=== PATIENT | male | born 1945 | race Caucasian/White ===

== ENCOUNTER → 2018-02-01 | Outpatient (CLI) | payer OTHER ==
[2018-02-01 09:03] LABS: BLOOD UREA NITROGEN 18 mg/dl (7-18); CARBON DIOXIDE 26 mmol/L (21-32); CREATININE 1.13 mg/dl (0.60-1.40); GLUCOSE 119 mg/dl (70-99); POTASSIUM 4.2 mmol/L (3.5-5.1); SODIUM 139 mmol/L (136-145)
[2018-02-01 10:01] LABS: HEMOGLOBIN A1C 6.9 % (4.5-5.6)
== END | disposition home or self-care (01) ==
LOC: C.LABFOXMH 08:35
PROVIDERS: ATTEND Internal Medicine
DX: E11.9 Type 2 diabetes mellitus without complications (principal); Z85.46 Personal history of malignant neoplasm of prostate; C61 Malignant neoplasm of prostate

== ENCOUNTER → 2018-05-01 | Outpatient (CLI) | payer OTHER ==
[~2018-05-01] MED LIST: OPTIRAY 320 IV PRN
--- NOTE | 2018-05-01 11:53 | DIAGNOSTIC IMAGING REPORT ---
CT UROGRAM CLINICAL HISTORY: Hematuria. COMPARISON STUDY: No priors. TECHNIQUE: Before and following the IV administration of 119 cc of Optiray 320, CT urogram of the abdomen and pelvis is performed from the lung bases to the proximal femora. Images are reviewed in the axial, sagittal, and coronal planes. IV contrast was administered without complication. A dose lowering technique was utilized adhering to the principles of ALARA. CT DOSE: 1406.97 mGy.cm FINDINGS: Lung bases: The heart is normal in size and without pericardial effusion. The lung bases are clear noting mild bibasilar scarring/atelectasis. There is a tiny hiatal hernia. Liver: The contrast-enhanced liver is normal in size, contour, and attenuation. There is no intrahepatic biliary ductal dilatation. The hepatic veins and portal veins are patent. Gallbladder: Unremarkable. Spleen: Normal in size and attenuation. Pancreas: Unremarkable. Adrenal glands: Unremarkable. Kidneys and ureters: The contrast enhanced kidneys are atrophic and without hydronephrosis. There are no renal calculi identified on the unenhanced images. The kidneys enhance and excrete symmetrically. There is no enhancing renal cortical mass lesion identified. Cortical scarring is seen in the interpolar right kidney. A peripherally calcified cyst or calyceal diverticulum seen on image #142 and measures up to 1.3 cm. There is a 1.7 cm parapelvic cyst seen on the left. A 0.8 cm cyst is seen in the right lower pole. There is no evidence of urothelial lesion within the renal pelvis bilaterally or along the course of either ureter. Abdominal vasculature: The abdominal aorta is normal in course and caliber noting moderate atherosclerotic calcification. Bowel: A large left inguinal hernia contains loops of nonobstructed small bowel and colon. No bowel obstruction is seen. There is moderate sigmoid diverticulosis without CT evidence of acute diverticulitis. Moderate fecal retention is noted in the right colon. The appendix is not clearly identified. Peritoneum: There is no intraperitoneal free air or abdominal ascites. Lymphadenopathy: None. Pelvic viscera: The prostate gland is diminutive and heterogeneous. There is median lobe hypertrophy. There is a large left internal hernia which contains loops of small bowel and colon. A small fat-containing inguinal hernia seen on the right. The bladder is distended. The bladder wall is thickened and trabeculated indicating chronic outlet obstruction. There is asymmetric bladder wall thickening versus layering intraluminal debris. This measures up to 11 mm in thickness, and is best seen on image #86 of the delayed bladder phase images. Skeletal structures: The skeletal structures are osteopenic. There is mild/moderate lumbosacral spondylosis. No lytic or blastic lesions are seen. IMPRESSION: 1. The kidneys are atrophic and without hydronephrosis. No renal calculi are identified. 2. There is no enhancing renal cortical mass, and no evidence of urothelial lesion involving the renal pelvis or ureter bilaterally. 3. There is median lobe hypertrophy of the prostate gland with evidence of chronic bladder obstruction. 4. There is asymmetric posterior bladder wall thickening versus layering intraluminal debris. Follow-up with cystoscopy is recommended for further assessment the bladder. 5. There is a large left inguinal hernia which contains nonobstructed loops of small bowel and colon. 6. Moderate sigmoid diverticulosis without CT evidence of acute diverticulitis. 7. Additional findings as above. Electronically signed by: Daneil Madison M.D. 05/01/2018 11:52 AM Dictated Date/Time: 05/01/2018 11:32 AM
== END | disposition home or self-care (01) ==
LOC: C.CTS 10:13
PROVIDERS: ATTEND Internal Medicine
DX: N26.1 Atrophy of kidney (terminal) (principal); N40.1 Benign prostatic hyperplasia with lower urinary tract symptoms

== ENCOUNTER → 2018-05-02 | Outpatient (CLI) | payer OTHER | END | disposition home or self-care (01) | LOC: C.PATHSPEC 17:38 | PROVIDERS: ATTEND Internal Medicine | DX: K40.90 Unilateral inguinal hernia, without obstruction or gangrene, not specified as recurrent (principal) ==

== ENCOUNTER → 2018-05-04 | Outpatient (CLI) | payer OTHER ==
[2018-05-04 15:52] LABS: BLOOD UREA NITROGEN 17 mg/dl (7-18); CALCIUM 8.9 mg/dl (8.5-10.1); CARBON DIOXIDE 28 mmol/L (21-32); GLUCOSE 277 mg/dl (70-99); POTASSIUM 4.6 mmol/L (3.5-5.1); SODIUM 136 mmol/L (136-145)
== END | disposition home or self-care (01) ==
LOC: C.LABFOXMH 15:22
PROVIDERS: ATTEND Nurse Practitioner Family
DX: Z51.81 Encounter for therapeutic drug level monitoring (principal); Z79.899 Other long term (current) drug therapy

== ENCOUNTER → 2018-05-07 | Outpatient (CLI) | payer OTHER ==
[2018-05-07 14:22] LABS: ALBUMIN 3.9 gm/dl (3.4-5.0); ALKALINE PHOSPHATASE 89 U/L (45-117); ALT/SGPT 33 U/L (12-78); AST/SGOT 20 U/L (15-37); BLOOD UREA NITROGEN 15 mg/dl (7-18); CALCIUM 10.1 mg/dl (8.5-10.1); CARBON DIOXIDE 24 mmol/L (21-32); CREATININE 1.34 mg/dl (0.60-1.40); GLUCOSE 266 mg/dl (70-99); POTASSIUM 4.4 mmol/L (3.5-5.1); SODIUM 135 mmol/L (136-145); TOTAL PROTEIN 7.9 gm/dl (6.4-8.2)
== END | disposition home or self-care (01) ==
LOC: C.LAB 11:18
PROVIDERS: ATTEND Urology
DX: K40.90 Unilateral inguinal hernia, without obstruction or gangrene, not specified as recurrent (principal)

== ENCOUNTER 2024-10-01 11:05 | Observation (INO) ==
--- NOTE | 2024-10-01 11:18 | ED Triage Note ---
Date of Service October 01, 2024 Provider in Triage Author: Radha Castanon History of Present Illness This patient was briefly evaluated while in triage. An abbreviated physical exam was performed. This patient is a 79-year-old Male who presents to the ED for evaluation sent from [facility] for urinary problems x 2 days urinary incontinence, left flank pain tried to insert catheter at facility x 2 - was able to void but had 1000 PVR reported elevated PSA and renal functions from recent labs Physical Exam GENERAL: NAD CARDIOVASCULAR: RRR RESPIRATORY: CTA ABDOMEN: BS x 4. Suprapubic TTP. Initial orders for labs and / or imaging were placed and patient was placed in the waiting area until a bed is available. Please see further documentation for the full ED course.
--- NOTE | 2024-10-01 11:28 | Emergency Department Note ---
Impression & Plan IZA (acute kidney injury), Difficulty voiding, Urinary retention, Prostate cancer, Urethral stricture ED Provider Note NAME: SO VALVERDE AGE: 79 SEX: M : 1945 ARRIVES VIA: Walk-In INFORMANT: Patient, ED PROVIDER(S): Mike Katz MD CHIEF COMPLAINT: Urinary retention, left lower quadrant pain MEDICAL DECISION MAKING: Patient presents with the above. The patient does not have any reproducible left lower quadrant pain on exam. Given the patient has been having issues with possible urinary retention over the week do believe that IV and blood work are warranted. Catheter was attempted to be placed at this time. Urinalysis sent. Initial difficulty with psych nurse attempted was able to place this. The patient did have significant output. The patient had resolution of any suprapubic fullness and has no abdominal pain. Given the patient's white blood cell count is normal do not believe requires CT of the abdomen pelvis at this time. Patient's blood work shows a normal white count hemoglobin 11.6 platelet count is unremarkable. Patient does have IZA with creatinine 2.3. Glucose of 367. Patient was ordered IV fluids. Likely obstructive uropathy as the patient has reported having urinary retention and went sounds to be overflow incontinence over the last week. I did inform the patient of the findings. I did speak with the on-call hospitalist service and the patient was admitted to the medicine service. I also did make the on-call urology service Stefani Hawkins aware. Discussion w/ other healthcare providers: LEE Ann PA-C and Dr. Jazzy Hawkins PA-C and Dr. Carnes urology Prior /Outside records reviewed: None Differential diagnosis: Urinary retention, UTI, bladder stone, IZA, ARF, pyelonephritis among others were considered Diagnostics, as interpreted by me: ECG: None Cardiac monitoring: An order was placed for continuous cardiac monitoring. The monitor shows a rate of 85 with sinus rhythm. Patient was placed on pulse oximetry Medical decision rules: None Imaging studies: None HPI: Patient presents as referral due to concern for urinary retention. Patient reports that he had some issues over the last week feeling though his bladder is full but cannot use the bathroom. The patient states that he will wake up in the middle the night around 2 in the morning and notices that he is wet to me indicate some overflow incontinence from his retention. The patient denies any chest pains or shortness of breath no nausea vomiting or diarrhea. The patient is an intermittent left-sided lower abdominal pain. Patient reports that he has had a prior history of prostate issues but has not had issues with urinary retention in the past that he can recall. Patient denies any flank pain or fevers. [facility] They did attempt to place catheter x 2 but were unsuccessful. The patient was able to urinate but still had thousand PVR. PAST MEDICAL HISTORY: See Below PAST SURGICAL HISTORY: See Below SOCIAL HISTORY: See Below HOME MEDICATIONS: See Below ALLERGIES: See Below VITALS: See Below PHYSICAL EXAMINATION: GENERAL: NAD, non-toxic. Wearing glasses. EYE EXAM: Normal conjunctiva. PERRL, no anisocoria and EOM's grossly intact w/o pain. OROPHARYNX: Moist mucus membranes, grossly normal dentition. NECK: Trachea midline, no stridor. Supple, no nuchal rigidity, no adenopathy, non-tender. No signs of meningismus. FROM of the neck with good chin to chest and neck extension. LUNGS: Clear to auscultation. Normal chest wall mechanics. HEART: NSR, no MRG. ABDOMEN: Abdomen soft, mild suprapubic fullness without tenderness to palpation in the lower abdomen, no masses, no rebound or guarding. BACK: No CVA TTP. SKIN: No rashes and no bruising. UPPER EXTREMITIES: Upper extremities are grossly normal. LOWER EXTREMITIES: Grossly normal, no edema. NEURO EXAM: A&O x3, cranial nerves II-XII grossly intact, normal speech, moves all 4 extremities. Past Med/Surg History Problem List (Updated 10/01/24 @ 18:27 by Mike Katz MD) Urinary retention (Acute) Difficulty voiding (Acute) IZA (acute kidney injury) (Acute) Diabetes mellitus, type 2 NIDDM Prostate cancer (Acute) Cancer PROSTATE - HAD RADIATION AND LUPRON IN 2005 IN [place], [place] Elevated PSA Urethral stricture (Acute) Hematuria Diabetes type 2, controlled Medical History White coat syndrome with diagnosis of hypertension BPH (benign prostatic hyperplasia) Tachycardia HAS HAD FOR YRS - STATES ALWAYS HIGH AND NO ISSUES Hyperlipidemia Surgical History No history of previous surgery Social History Smoking Status: Never smoker Do You Dip or Chew Tobacco: No; Hx Alcohol Use: Yes Hx Substance Use: No Preferred Language: Samoan Communication Ability: Effective Beliefs That Will Affect Care: None Current Living Situation: Alone Feels Safe at Home: Yes Assistive Devices: Glasses Allergies Allergies Allergy/AdvReac Type Severity Reaction Status Date / Time No Known Allergies Allergy Unverified 02/21/24 12:51 Home Meds Home Medications Medication Instructions Recorded Confirmed acetaminophen 500 mg tablet 500 mg PO Q6H PRN Pain (Scale 05/28/18 10/01/24 Score 1-3) aspirin 325 mg tablet 325 mg PO DAILY PRN Fever 05/28/18 10/01/24 glipizide 10 mg tablet 10 mg PO TIDWMEAL 05/28/18 10/01/24 metformin 1,000 mg tablet 1,000 mg PO BIDM 05/28/18 10/01/24 multivitamin 1 tab PO QAM 05/28/18 10/01/24 simvastatin 40 mg tablet 40 mg PO PM 05/28/18 10/01/24 sitagliptin phosphate 100 mg 100 mg PO QPM 05/28/18 10/01/24 tablet (Januvia) Results & Data (ED) Vital Signs Vital Signs - 24 hr 10/01/24 11:16 10/01/24 12:16 10/01/24 12:16 Temperature 36.4 C L Temperature Source Oral Pulse Rate 122 H 96 H Pulse Rate [Apical] 102 H Pulse Rhythm Regular Pulse Rhythm [Apical] Regular Respiratory Rate 18 20 19 Respiratory Effort / Characteristics Non-Labored Spontaneous Respiratory Depth Normal Respiratory Pattern Regular Blood Pressure 165/106 H Blood Pressure [Right Arm] 157/114 H Blood Pressure Mean 125 Blood Pressure Mean [Right Arm] 128 Pulse Oximetry 97 98 97 Oxygen Delivery Method Room Air Room Air Room Air Sepsis Recent Fever Within 48 Hours No Sepsis New/Unexplained Change in Mental Status No Sepsis Action Taken by Nursing No Action Required 10/01/24 12:23 Temperature Temperature Source Pulse Rate 103 H Pulse Rate [Apical] Pulse Rhythm Pulse Rhythm [Apical] Respiratory Rate Respiratory Effort / Characteristics Respiratory Depth Respiratory Pattern Blood Pressure Blood Pressure [Right Arm] Blood Pressure Mean Blood Pressure Mean [Right Arm] Pulse Oximetry Oxygen Delivery Method Sepsis Recent Fever Within 48 Hours Sepsis New/Unexplained Change in Mental Status Sepsis Action Taken by Nursing Laboratory Data 10/01/24 11:39 10/01/24 11:39 Lab Results 10/01/24 Range/Units 11:39 WBC 9.48 (4.8-10.8) K/ul RBC 3.77 L (4.70-6.10) M/uL Hgb 11.6 L (14.0-18.0) g/dl Hct 35.3 L (42.0-52.0) % MCV 93.6 (80.0-100.0) fL MCH 30.8 (25.0-34.0) pg MCHC 32.9 (32.0-36.0) g/dL RDW Std Deviation 42.7 (36.4-46.3) fL RDW Coeff of Thalia 12.4 (11.5-14.5) % Plt Count 228 (130-400) K/uL MPV 9.3 L (9.4-12.4) fL Immature Gran % (Auto) 0.3 % Neut % (Auto) 79.3 % Lymph % (Auto) 12.2 % [place]on % (Auto) 6.9 % Eos % (Auto) 0.9 % Baso % (Auto) 0.4 % Neut # (Auto) 7.51 H (1.40-6.50) K/uL Lymph # (Auto) 1.16 L (1.20-3.40) K/uL [place] # (Auto) 0.65 H (0.11-0.59) K/uL Eos # (Auto) 0.09 (0.00-0.50) K/uL Baso # (Auto) 0.04 (0.00-0.20) K/uL Immature Gran # (Auto) 0.03 (0.01-0.20) K/uL Sodium 138 (136-145) mmol/L Potassium 4.3 (3.5-5.1) mmol/L Chloride 103 (98-107) mmol/L Carbon Dioxide 23 (21-32) mmol/L Anion Gap 12 H (3-11) BUN 26 H (6-23) mg/dl Creatinine 2.33 H (0.6-1.4) mg/dl Est Cr Clr Drug Dosing 24.5 ml/min eGFR 27.57 BUN/Creatinine Ratio 11.2 (10-20) Glucose 367 H* (70-99(Fasting)) mg/dl Calcium 9.8 (8.6-10.3) mg/dl Total Bilirubin 0.5 (0.2-1.0) mg/dl AST 17 (13-39) U/L ALT 14 (7-52) U/L Alkaline Phosphatase 79 (34-104) U/L Total Protein 7.8 (6.0-8.3) gm/dl Albumin 4.1 (3.4-5.0) gm/dl Globulin 3.7 (2.5-4.0) gm/dl Albumin/Globulin Ratio 1.1 (0.9-2) Administered Medications Discontinued Medications Sodium Chloride (Nss) 500 mls @ 999 mls/hr IV .Q31M ONE Stop: 10/01/24 13:09 Last Infusion: 10/01/24 13:35 Dose: Infused Documented By: Admin: 10/01/24 12:57 Dose: 999 mls/hr Documented By: EDDIE Insulin Glargine (Lantus Per Unit Charge) 5 units SQ NOW STA Stop: 10/01/24 15:29 Last Admin: 10/01/24 15:45 Dose: 5 units Documented By: SAMARA Co-signed By: PILY Lidocaine HCl (Lidocaine 2% Jelly 5 Ml Tube) Confirm Administered Dose 5 ml EXT .STK-MED ONE Stop: 10/01/24 11:59 Last Admin: 10/01/24 12:10 Dose: 5 ml Documented By: TOY Discharge Plan Visit Data Chief Complaint: Unable to Void Stated Complaint: UNABLE TO FULLY VOID ED Provider: Mike Katz Discharge Problem: IZA (acute kidney injury), Difficulty voiding, Urinary retention, Prostate cancer, Urethral stricture Patient Disposition: Admitted As Inpatient Discharge Instructions Interventions: ED Discharge Assessment Last Done: 10/01/24 14:43 Discharge Problem: Urethral stricture Qualifiers: Urethral stricture type: unspecified stricture type Urethral stricture sex- location: male urethra-unspecified Qualified Code(s): N35.919 - Unspecified urethral stricture, male, unspecified site
[2024-10-01] MEDS: LIDOCAINE 2% JELLY 5 ML TUBE EXT ONE (12:10)
[2024-10-01 12:11] LABS: Basophils # (auto) 0.04 K/uL (0.00-0.20); Basophils % (auto) 0.4 %; Eosinophils # (auto) 0.09 K/uL (0.00-0.50); Eosinophils % (auto) 0.9 %; Hematocrit (blood only) 35.3 % (42.0-52.0); Hemoglobin 11.6 g/dl (14.0-18.0); Immature Granulocytes # (auto) 0.03 K/uL (0.01-0.20); Immature Granulocytes % (auto) 0.3 %; Lymphocytes # (auto) 1.16 K/uL (1.20-3.40); Lymphocytes % (auto) 12.2 %; Mean Corpuscular Hemoglobin 30.8 pg (25.0-34.0); Mean Corpuscular Hgb Conc 32.9 g/dL (32.0-36.0); Mean Corpuscular Volume 93.6 fL (80.0-100.0); Mean Platelet Volume 9.3 fL (9.4-12.4); Monocytes # (auto) 0.65 K/uL (0.11-0.59); Monocytes % (auto) 6.9 %; Neutrophils # (auto) 7.51 K/uL (1.40-6.50); Neutrophils % (auto) 79.3 %; Platelet Count 228 K/uL (130-400); RDW Coefficient of Variation 12.4 % (11.5-14.5); RDW Standard Deviation 42.7 fL (36.4-46.3); Red Blood Count 3.77 M/uL (4.70-6.10); White Blood Count 9.48 K/ul (4.8-10.8)
[2024-10-01 12:33] LABS: Albumin Globulin Ratio 1.1 (0.9-2); Albumin Level 4.1 gm/dl (3.4-5.0); BUN Creatinine Ratio 11.2 (10-20); Bilirubin,Total 0.5 mg/dl (0.2-1.0); Calcium 9.8 mg/dl (8.6-10.3); Creatinine Clr Calc Pharmacy 24.5 ml/min; Globulin 3.7 gm/dl (2.5-4.0); Potassium 4.3 mmol/L (3.5-5.1); Total Protein 7.8 gm/dl (6.0-8.3)
[2024-10-01] MEDS: SODIUM CHLORIDE 0.9% 500 ML IV ONE (12:57)
--- NOTE | 2024-10-01 13:24 | History & Physical Report ---
Date of Service October 01, 2024 Assessment & Plan (1) Difficulty voiding: Plan: Patient presented on 10/01 for difficulty voiding Clinically, patient denies burning with urination, dysuria, or hematuria His main concerns on arrival are the difficulty voiding and ongoing nocturia x 1 month Amador placed in the ED; drained 1L Suspect secondary to urethral stricture in the setting of prostate cancer UA ordered, pending Daily Amador catheter care (2) IZA (acute kidney injury): Plan: BUN 26, creatinine 2.33 (baseline around 1.2) Thought to be secondary to obstruction Avoid nephrotoxic agents for possible Trend BMP (3) Diabetes mellitus, type 2: Plan: Last A1c at 8.4% on 09/03/2024 Hold glipizide, metformin, sitagliptin Lantus 5 u BID while inpatient SSI; with target BSG range 110-140mg/dL, CF 25, carb ratio 10 T2DM diet BSG ACHS Adjust regimen as needed (4) Prostate cancer: (5) Urethral stricture: Plan [facility]: [facility] T2DM diet VTE PPx: Heparin 5000u SQ q12h History of Present Illness Chief Complaint: Difficulty voiding, nocturia Primary Care Provider: Modesto Benites is a pleasant 79-year-old male with PMH of T2DM, urethral stricture, hematuria, and prostate cancer. He presented on 10/01 for difficulty voiding. Patient reports he was able to give a small sample of urine when he went to his PCP today, but when they tried to insert a Amador x 2, they were unable to and he was instructed to go to the ED. Patient reports that his main concern is that he wakes up frequently at night to urinate. He has also had several episodes of nocturia and urinary incontinence over the past month. While patient reports he has not had complete inability to urinate, he has had significant difficulty voiding as well as urinary incontinence (not new for him), and he wears briefs at baseline. He ambulates with a cane at baseline. He denies any recent falls, but does report he stumbled into the appliance the other day when he reached too far; no head strike. No prior history of kidney stones. Patient did not take his regular morning medicine today; he manages her own medicine at [facility]. No recent change in medications. He is a former smoker but quit in 1964. No recent alcohol use. Patient is mildly hypertensive at 157/114, as well as tachycardic around 100 bpm, at time of admission. ED course: Amador placed NSS 500 mL IV ROS: Patient endorses difficulty with urination, urinary incontinence, and nocturia. Patient denies fever, chills, night-sweats, dizziness, lightheadedness, chest pain, SOB, cough, abdominal pain, N/V/D, change in bowel habits, lower back pain, saddle anesthesia, burning with urination, or hematuria. Allergies Allergy/AdvReac Type Severity Reaction Status Date / Time No Known Allergies Allergy Unverified 02/21/24 12:51 Home Medications Medication Instructions Recorded Confirmed Type acetaminophen 500 mg tablet 500 mg PO Q6H PRN Pain (Scale 05/28/18 10/01/24 History Score 1-3) aspirin 325 mg tablet 325 mg PO DAILY PRN Fever 05/28/18 10/01/24 History glipizide 10 mg tablet 10 mg PO TIDWMEAL 05/28/18 10/01/24 History metformin 1,000 mg tablet 1,000 mg PO BIDM 05/28/18 10/01/24 History multivitamin 1 tab PO QAM 05/28/18 10/01/24 History simvastatin 40 mg tablet 40 mg PO PM 05/28/18 10/01/24 History sitagliptin phosphate 100 mg 100 mg PO QPM 05/28/18 10/01/24 History tablet (Januvia) Past Med/Surg History Problem List (Updated 10/01/24 @ 16:39 by MANOLO Strong) Urinary retention Difficulty voiding IZA (acute kidney injury) Diabetes mellitus, type 2 NIDDM Prostate cancer Cancer PROSTATE - HAD RADIATION AND LUPRON IN 2005 IN [place], [place] Elevated PSA Urethral stricture Hematuria Diabetes type 2, controlled Medical History White coat syndrome with diagnosis of hypertension BPH (benign prostatic hyperplasia) Tachycardia HAS HAD FOR YRS - STATES ALWAYS HIGH AND NO ISSUES Hyperlipidemia Surgical History No history of previous surgery Social History Smoking Status: Never smoker Do You Dip or Chew Tobacco: No; Hx Alcohol Use: Yes Hx Substance Use: No Preferred Language: Citizen Of [place] Communication Ability: Effective Beliefs That Will Affect Care: None Current Living Situation: Alone Feels Safe at Home: Yes Assistive Devices: Glasses Review of Systems Review of Systems: See HPI above Physical Exam Physical Exam: General: no acute distress; pleasant affect; non-toxic appearing; cooperative; SpO2 97% on RA HEENT: normocephalic, atraumatic; no scleral icterus; PERRLA; vision and hearing grossly intact Neck: supple; trachea midline Skin: Hematoma noted on the right antecubital fossa; warm, dry without signs of tenting; no cyanosis; no rashes, bruising, lesions, or erythema noted CV: chest wall NTP; RR, mildly tachycardic around 100 bpm; S1/S2 normal; no murmurs/rubs/gallops; pulses intact and symmetric at radial, DP, and PT Lungs: no acute respiratory distress; symmetrical chest wall expansion; clear breath sounds across all lung stevenson w/o adventitious sounds; no wheezing ABD: Soft, NTP; BS present; no rebound/guarding; no distention : Mild erythematous rash noted on the right inguinal crease; Amador draining dark yellow urine; negative suprapubic tenderness; no gross hematuria MSK: no tics or fasciculations; no edema noted in the LEs b/l, nonerythematous; patient demonstrates ability to wiggle toes bilaterally Neuro: A&Ox3; normal mood and affect; fluent speech; no focal deficits; patient reports that sensation is intact and symmetric in lower extremities bilaterally Results & Data Results & Data Vital Signs (Past 12 Hours) Vital Signs Temp Pulse Pulse Resp BP BP Pulse Ox 10/01/24 12:23 103 H 10/01/24 12:16 96 H 19 97 10/01/24 12:16 102 H 20 157/114 H 98 10/01/24 11:16 36.4 C L 122 H 18 165/106 H 97 O2 Del Method 10/01/24 12:23 10/01/24 12:16 Room Air 10/01/24 12:16 Room Air 10/01/24 11:16 Room Air Laboratory Results Abnormal lab results 10/01/24 Range/Units 11:39 RBC 3.77 L (4.70-6.10) M/uL Hgb 11.6 L (14.0-18.0) g/dl Hct 35.3 L (42.0-52.0) % MPV 9.3 L (9.4-12.4) fL Neut # (Auto) 7.51 H (1.40-6.50) K/uL Lymph # (Auto) 1.16 L (1.20-3.40) K/uL [place] # (Auto) 0.65 H (0.11-0.59) K/uL Anion Gap 12 H (3-11) BUN 26 H (6-23) mg/dl Creatinine 2.33 H (0.6-1.4) mg/dl Glucose 367 H* (70-99(Fasting)) mg/dl Code Status & VTE Plan Code Status DNR/DNI VTE Prophylaxis Plan VTE Prophylaxis will be ordered: Yes Supervising Physician Co-Signing Physician Notes I personally examined the patient and verified all dodge points of history and exam, discussed case, and agree with decision making with Andrea AMEZQUITA Feeling much better since Amador placed. Expresses good understanding of situation. Has no current complaints. Urology input appreciated. Vitals note d, in general he is awake and alert pleasant no distress. HEENT normocephalic atraumatic mucous membranes moist. Breathing unlabored no accessory muscle use good effort. Skin without rashes pallor or icterus. Neuro without focal deficits. Labs reviewed. Obstructive uropathy with concomitant acute renal failurealmost certainly prostatic obstructionnow alleviated with Amador drainage. Anticipate ARF improvingwatch overnight to ensure that he trends in the right direction, and that he is able to tolerate the Amador okay. Anticipate home tomorrow with amador in place as long as he has no setbacks, will have close and ongoing urology follow-up. PG Care Time/CCT Total # of Minutes Spent Total Time Spent with Patient: Total time spent is greater than 50% in coordination of care (as documented) at patient's floor/unit and/or counseling patient: Coding [place] [address] INT INP/OBS CARE 3/75MIN Patient Type Established Medical Decision Making Moderate Complexity Diagnoses Difficulty voiding R39.198 IZA (acute kidney injury) N17.9 Diabetes mellitus, type 2 E11.9 Prostate cancer C61 Urethral stricture N35.9
[2024-10-01] MEDS ORDERED: ACETAMINOPHEN 325 MG TAB PO PRN (14:42)
[2024-10-01] MEDS ORDERED: CARBOHYDRATES FOR HYPOGLYCEMIA PO PRN (14:42)
[2024-10-01] MEDS ORDERED: GLUCAGON FOR INJ 1 MG VIAL SQ PRN (14:42)
[2024-10-01] MEDS ORDERED: GLUCOSE 40% GEL 15 GM TUBE PO PRN (14:42)
[2024-10-01] MEDS ORDERED: DEXTROSE 50% 50 ML SYRINGE IV PRN (14:42)
[2024-10-01] MEDS ORDERED: GLUCOSE 10 TAB/TUBE PO PRN (14:42)
[2024-10-01] MEDS: LANTUS PER UNIT CHARGE SQ STA (15:45)
--- NOTE | 2024-10-01 16:43 | Urology Consultation ---
<Statement entered by Adolph Carnes MD - 10/01/24 18:48> I have discussed Mr. Abad's case with MANOLO Lipscomb and agree with the above documentation. Urinary retention now managed with indwelling Lance catheter. Would maintain this until we can arrange outpatient follow-up, likely for cystoscopy to further evaluate his urethra with history of stricture disea se. -Adolph Carnes MD. Date of Consultation October 01, 2024 Assessment & Plan (1) Urinary retention: (2) Difficulty voiding: (3) Prostate cancer: (4) Urethral stricture: 79 yo/M with past medical history of prostate cancer and urethral stricture who presented to the emergency department for evaluation of difficulty voiding and elevated bladder scan at [facility]. Lance catheter was placed in the emergency department and he was admitted for urinary retention and IZA. Patient afebrile Labs reviewedcreatinine 2.33 (baseline ~1.18), no leukocytosis, hemoglobin 11.6 Lance catheter was placed in the emergency department with greater than 1 L of output Monitor for postobstructive diuresis, trend labs Recommend UA and culture Maintain Lance catheter upon discharge Patient will likely need cystoscopy as an outpatient Will arrange outpatient follow-up with our service for further management Continue with supportive care and medical management per hospital medicine service will sign off, please contact our service with any additional questions or concerns History of Present Illness Reason for Consultation: Urinary retention Attending Physician: Mariusz Purcell DO History of Present Illness This is an 79-year-old male with past medical history of prostate cancer and urethral stricture who presented to the emergency department on 10/01 for evaluation of difficulty voiding. He resides at [facility] and was evaluated for difficulty voiding. His facility was unable to place catheter, bladder scan was approximately 1000 mL. He was referred to the emergency department for further evaluation. On arrival, he was afebrile, tachycardic and hypertensive. Lab work showed creatinine 2.33 (baseline ~1.18), WBC 9.48, hemoglobin 11.6. Lance catheter was placed in the emergency department. He was admitted to the hospital medicine service for IZA. Patient seen and examined in the emergency department. He reports increased difficulty voiding and nocturia for the past month or so. He reports nocturia every 2 hours and incontinence at night. He had low appetite and lower abdominal discomfort for the past 2 days. Denies bothersome urinary symptoms during the day, though notes weak stream at baseline. Occasional incontinence during the day. Denies dysuria or hematuria. Feels better since catheter was placed. Patient follows with Dr. Myrick for history of prostate cancer and has a history of urethral stricture. Allergies Allergy/AdvReac Type Severity Reaction Status Date / Time No Known Allergies Allergy Unverified 02/21/24 12:51 Home Medications Medication Instructions Recorded Confirmed Type acetaminophen 500 mg tablet 500 mg PO Q6H PRN Pain (Scale 05/28/18 10/01/24 History Score 1-3) aspirin 325 mg tablet 325 mg PO DAILY PRN Fever 05/28/18 10/01/24 History glipizide 10 mg tablet 10 mg PO TIDWMEAL 05/28/18 10/01/24 History metformin 1,000 mg tablet 1,000 mg PO BIDM 05/28/18 10/01/24 History multivitamin 1 tab PO QAM 05/28/18 10/01/24 History simvastatin 40 mg tablet 40 mg PO PM 05/28/18 10/01/24 History sitagliptin phosphate 100 mg 100 mg PO QPM 05/28/18 10/01/24 History tablet (Januvia) Patient History Medical History White coat syndrome with diagnosis of hypertension BPH (benign prostatic hyperplasia) Tachycardia HAS HAD FOR YRS - STATES ALWAYS HIGH AND NO ISSUES Hyperlipidemia Surgical History No history of previous surgery Social History Smoking Status: Never smoker Do You Dip or Chew Tobacco: No; Hx Alcohol Use: Yes Hx Substance Use: No Preferred Language: [place] Communication Ability: Effective Beliefs That Will Affect Care: None Current Living Situation: Alone Feels Safe at Home: Yes Assistive Devices: Glasses Review of Systems Review of Systems: All systems reviewed & are unremarkable except as noted in HPI & below Physical Exam Constitutional: well developed and well nourished; no acute distress Respiratory: normal respiratory effort; no respiratory distress and no labored breathing Gastrointestinal (Abdomen): Inspection/Auscultation: abdomen normal to inspection Musculoskeletal: Head/Neck/Chest: normocephalic Neurologic: moves all extremities and awake Psychiatric: Orientation: alert and oriented x 3 Genitourinary: Lance patent and draining clear yellow urine Results & Data Vital Signs (Past 12 Hours) Vital Signs Temp Pulse Pulse Resp BP BP Pulse Ox 10/01/24 15:26 95 H 18 159/99 H 95 10/01/24 12:23 103 H 10/01/24 12:16 96 H 19 97 10/01/24 12:16 102 H 20 157/114 H 98 10/01/24 11:16 36.4 C L 122 H 18 165/106 H 97 O2 Del Method 10/01/24 15:26 Room Air 10/01/24 12:23 10/01/24 12:16 Room Air 10/01/24 12:16 Room Air 10/01/24 11:16 Room Air PG Care Time/CCT Total # of Minutes Spent Total Time Spent with Patient: Total time spent is greater than 50% in coordination of care (as documented) at patient's floor/unit and/or counseling patient: Coding Level of Care Code 73058 INT INP/OBS CARE 2/55MIN Diagnoses Urinary retention R33.9 Difficulty voiding R39.198 Prostate cancer C61 Urethral stricture N35.9
[2024-10-01] MEDS: INSULIN ASPART PER UNIT CHARGE SC SCH (18:23)
[2024-10-01] MEDS: SIMVASTATIN 40 MG TAB PO SCH (20:07)
[2024-10-01] MEDS: HEPARIN SOD 5,000 UNIT/0.5 ML VIAL SQ SCH (21:45)
[2024-10-02 08:06] LABS: Basophils # (auto) 0.05 K/uL (0.00-0.20); Basophils % (auto) 0.5 %; Hematocrit (blood only) 35.6 % (42.0-52.0); Immature Granulocytes # (auto) 0.04 K/uL (0.01-0.20); Immature Granulocytes % (auto) 0.4 %; Lymphocytes # (auto) 1.56 K/uL (1.20-3.40); Lymphocytes % (auto) 15.1 %; Mean Corpuscular Hemoglobin 31.6 pg (25.0-34.0); Mean Corpuscular Hgb Conc 33.7 g/dL (32.0-36.0); Mean Corpuscular Volume 93.7 fL (80.0-100.0); Mean Platelet Volume 9.5 fL (9.4-12.4); Monocytes # (auto) 0.82 K/uL (0.11-0.59); Monocytes % (auto) 7.9 %; Neutrophils # (auto) 7.79 K/uL (1.40-6.50); Neutrophils % (auto) 75.1 %; Platelet Count 238 K/uL (130-400); RDW Coefficient of Variation 12.6 % (11.5-14.5); RDW Standard Deviation 43.3 fL (36.4-46.3); White Blood Count 10.36 K/ul (4.8-10.8)
[2024-10-02 08:11] LABS: BUN Creatinine Ratio 13.1 (10-20); Calcium 9.2 mg/dl (8.6-10.3); Creatinine Clr Calc Pharmacy 23.4 ml/min; Potassium 4.3 mmol/L (3.5-5.1)
[2024-10-02] MEDS: LANTUS PER UNIT CHARGE SQ SCH ×2 (08:36→21:02)
--- NOTE | 2024-10-02 08:43 | Hospitalist Progress Note ---
Date of Service October 02, 2024 Assessment & Plan (1) Urinary retention: (2) Urethral stricture: (3) IZA (acute kidney injury): (4) Hematuria: (5) Diabetes mellitus, type 2: (6) Prostate cancer: Plan Kamari 79-year-old male with PMH of T2DM, urethral stricture, hematuria, and prostate cancer here due to urinary retention IZA (acute kidney injury): Cr: 2.44 - BUN 35, not improving yet since Lance catheter placement 2/ secondary to obstruction, Renal ultrasound: Mild to moderate bilateral hydronephrosis. Lance catheter now in place and the hydronephrosis may take some time to resolve FeNA: 2.2% Intrinsic? Versus long-term postobstructive IV antibiotic as below for UTI NSS 500 ml bolus given today due hyperglycemia and tachycardia Avoid nephrotoxic agents for possible Trend BMP Obstructive uropathy Patient presented on 10/01 for difficulty voiding His main concerns on arrival are the difficulty voiding and ongoing nocturia x 1 month Lance placed in the ED; drained 1L Suspect secondary to urethral stricture in the setting of prostate cancer Some hematuria on 10/02 likely secondary to traumatic Lance catheter placement with urethral stricture Urology consulted: keep Lance, follow up outpatient. Possible cystoscopy as outpatient. UTI: UA: Leukocyte Est, WBC IV Ceftriaxone started today Urine culture pending Diabetes mellitus, type 2: Last A1c at 8.4% on 09/03/2024 Hold glipizide, metformin, sitagliptin Hyperglycemic today. UA with ketones Lantus increased to 7 units BID SSI narrow today as well, Continue to monitor T2DM diet BSG ACHS Adjust regimen as needed FEN: DM2 Code status:DNR/DNI DVT ppx: SCDs, heparin hold due to hematuria Dispo: med/surg Admission and Anticipated Discharge Date Admission Date: October 01, 2024 Supervising Physician Co-Signing Physician Notes I personally examined the patient and verified all dodge points of history and exam, discussed case, and agree with decision making with Dr. Saul Balderrama with the following additions/exceptions: S-patient very anxious about leaving the hospital because he has bills that he needs to pay at home and he is worried that his cleaning lady will take the money that he has laying around the house. Discussed with him that he is still in kidney failure and should stay a little bit longer in the hospital for further treatment. Also hyperglycemic in the 300s on several occasions today O- Vitals Reviewed Gen: AAOx3, NAD HEENT: Anicteric sclerae, EOMI CV: RRR no mgr nl S1S2 Pulm: CTAB no wcr Abd: +BS soft NT ND no masses or hernias, Lance catheter in place with dark yellow urine Ext: No edema Skin: No rashes, warm/dry Neuro: Full strength throughout CBC, BMP, and renal ultrasound reviewed A/P: 79-year-old male here with likely acute kidney injury but could be progressive chronic kidney disease secondary to ongoing postobstructive uropathy with urethral stricture and known prostate cancer Nocturia and urinary frequency every 2 hours has been going on for approximately 2 months. Baseline creatinine from 01/2024 was normal Treat hyperglycemia, give further IV fluids, check renal ultrasound, and maintain Lance catheter Follow BMP again in the morning. If creatinine remains stable and no hyperka lemia or acidosis, he could likely go home with close outpatient follow-up as this may be his new baseline creatinine He is certainly not volume overloaded Subjective Seen this morning. Resting in bed. NAD. Refers drinking and eating well. Denied any back pain, nausea, abdominal pain, vomiting, SOB or any other symptoms. He was inquiring about going home today Review of Systems Review of Systems: as per HPI Physical Exam Constitutional: WD/WN, vitals as above Eyes: PERRL, conjunctivae normal, anicteric sclerae Respiratory: normal respiratory effort, lungs clear to auscultation Cardiovascular: RRR, no murmur, no edema Gastrointestinal (Abdomen): normal bowel sounds, soft, nontender, no hepatosplenomegaly Genitourinary: Lance: Gross hematuria Results & Data Results & Data Vital Signs (Past 12 Hours) Vital Signs Temp Pulse Resp BP Pulse Ox O2 Del Method 10/02/24 07:50 37 C 99 H 16 138/92 97 Room Air Resident Activity Tracking Resident Involvement: Resident Care Provided Care Provided: Adult Hospital Medicine (2) Urethral stricture Urethral stricture sex-location: male urethra-unspecified Urethral stricture type: unspecified stricture type Qualified Code(s): N35.919 - Unspecified urethral stricture, male, unspecified site
[2024-10-02] MEDS ORDERED: SODIUM CHLORIDE 0.9% 500 ML IV SCH (10:15)
[2024-10-02 12:06] LABS: Appearance Urine Cloudy (Clear); Bacteria Urine Automated None Seen (None Seen); Bilirubin Urine Negative (Negative); Blood Urine 3+ (Negative); Color Urine Red; Epithelial Cell Urine Auto 0-2 /hpf (0-2); Glucose Urine UA 3+ (Negative); Ketones Urine Trace (Negative); Leukocyte Esterase Urine 2+ (Negative); Nitrite Urine Negative (Negative); Protein Urine 3+ (Negative); RBC Urine Automated >20 /hpf (0-2); Specific Gravity Urine 1.015 (1.000-1.030); Urobilinogen Urine Negative (Negative); WBC Urine Automated >50 /hpf (0-5); pH Urine 5.5 (4.5-7.5)
[2024-10-02 12:50] LABS: Creatinine Urine Random 58.9 mg/dl
[2024-10-02 14:30] LABS: BUN Creatinine Ratio 14.3 (10-20); Creatinine Clr Calc Pharmacy 23.4 ml/min; Potassium 4.3 mmol/L (3.5-5.1)
--- NOTE | 2024-10-02 14:36 | Ultrasound Report ---
RENAL ULTRASOUND CLINICAL HISTORY: IZA, urine retention. COMPARISON STUDY: CT of the abdomen and pelvis May 01, 2018. TECHNIQUE: Sonography of the kidneys and the urinary bladder was performed. FINDINGS: Right kidney measures 10 cm in maximal dimension and the left measures 10.7 cm. Moderate ri ght and mild left renal cortical thinning is present. There is mild to moderate bilateral hydronephro sis. A 1.5 cm echogenic shadowing focus within the cortex of the midpole of the right kidney is simil ar to prior CT. This represents a peripherally calcified lesion which is likely benign. The bladder i s collapsed, containing a Lance. The bladder wall is thickened. IMPRESSION: 1. Mild to moderate bilateral hydronephrosis. 2. Thickened bladder wall. Collapsed bladder, containing a Lance. 3. Bilateral renal cortical thinning, greater on the right. ACT 112: Negative or not required by law. Electronically signed by: Juan Koo M.D. 10/02/2024 2:34 PM
[2024-10-02] MEDS: SODIUM CHLORIDE 0.9% 500 ML IV SCH (15:00)
[2024-10-02] MEDS: cefTRIAXone SODIUM 1,000 MG/50 ML BAG IV SCH (16:17)
--- NOTE | 2024-10-02 18:18 | Billing Data ---
Date of Service October 02, 2024 Coding Level of Care Code 41870 SUB INP/OBS CARE
[2024-10-02 19:34] VITALS: RESP 18; O2SAT 96
[2024-10-02] MEDS: MELATONIN 3 MG TAB PO PRN (21:02)
[2024-10-03 08:02] VITALS: BP 149/98; PULSE 112; TEMP 97.9
[2024-10-03] MEDS: LANTUS PER UNIT CHARGE SQ SCH (09:21)
[2024-10-03 09:33] LABS: Basophils # (auto) 0.07 K/uL (0.00-0.20); Basophils % (auto) 0.5 %; Eosinophils # (auto) 0.23 K/uL (0.00-0.50); Eosinophils % (auto) 1.7 %; Hematocrit (blood only) 35.4 % (42.0-52.0); Hemoglobin 12.1 g/dl (14.0-18.0); Immature Granulocytes # (auto) 0.04 K/uL (0.01-0.20); Immature Granulocytes % (auto) 0.3 %; Lymphocytes # (auto) 1.32 K/uL (1.20-3.40); Mean Corpuscular Hemoglobin 31.4 pg (25.0-34.0); Mean Corpuscular Hgb Conc 34.2 g/dL (32.0-36.0); Mean Corpuscular Volume 91.9 fL (80.0-100.0); Mean Platelet Volume 9.6 fL (9.4-12.4); Monocytes % (auto) 6.8 %; Neutrophils # (auto) 10.67 K/uL (1.40-6.50); Neutrophils % (auto) 80.7 %; Platelet Count 246 K/uL (130-400); RDW Coefficient of Variation 12.5 % (11.5-14.5); RDW Standard Deviation 42.1 fL (36.4-46.3); Red Blood Count 3.85 M/uL (4.70-6.10); White Blood Count 13.23 K/ul (4.8-10.8)
[2024-10-03 09:37] LABS: BUN Creatinine Ratio 16.4 (10-20); Calcium 9.1 mg/dl (8.6-10.3); Creatinine Clr Calc Pharmacy 28.4 ml/min; Potassium 4.1 mmol/L (3.5-5.1)
[2024-10-03 09:59] LABS: Ferritin 93.7 ng/ml (8-388)
[2024-10-03 10:01] LABS: Folate (Folic Acid),Ser orPlas 18.24 ng/ml (>5.38)
--- NOTE | 2024-10-03 11:19 | Discharge Summary ---
Date of Service October 03, 2024 Admission HPI Per Admitting Provider Kamari is a pleasant 79-year-old male with PMH of T2DM, urethral stricture, hematuria, and prostate cancer. He presented on 10/01 for difficulty voiding. Patient reports he was able to give a small sample of urine when he went to his PCP today, but when they tried to insert a Amador x 2, they were unable to and he was instructed to go to the ED. Patient reports that his main concern is that he wakes up frequently at night to urinate. He has also had several episodes of nocturia and urinary incontinence over the past month. While patient reports he has not had complete inability to urinate, he has had significant difficulty voiding as well as urinary incontinence (not new for him), and he wears briefs at baseline. He ambulates with a cane at baseline. He denies any recent falls, but does report he stumbled into the appliance the other day when he reached too far; no head strike. No prior history of kidney stones. Patient did not take his regular morning medicine today; he manages her own medicine at [facility]. No recent change in medications. He is a former smoker but quit in 1964. No recent alcohol use. Patient is mildly hypertensive at 157/114, as well as tachycardic around 100 bpm, at time of admission. ED course: Amador placed NSS 500 mL IV ROS: Patient endorses difficulty with urination, urinary incontinence, and nocturia. Patient denies fever, chills, night-sweats, dizziness, lightheadedness, chest pain, SOB, cough, abdominal pain, N/V/D, change in bowel habits, lower back pain, saddle anesthesia, burning with urination, or hematuria. Principal Diagnosis Obstructive uropathy with concomitant acute renal failure Discharge Exam Constitutional WD/WN, vitals as above Eyes PERRL, conjunctivae normal, anicteric sclerae Respiratory normal respiratory effort, lungs clear to auscultation Cardiovascular RRR, no murmur, no edema Gastrointestinal (Abdomen) normal bowel sounds, soft, nontender, no hepatosplenomegaly Discharge Data Allergies Allergy/AdvReac Type Severity Reaction Status Date / Time No Known Allergies Allergy Unverified 02/21/24 12:51 Consultations 10/01/24 13:08 ED Decision to Admit Stat 10/01/24 16:47 Consult Urology Routine Ordered Studies 10/02/24 12:25 US renal/blad retro comp Stat Hospital Course (1) Urinary retention: (2) IZA (acute kidney injury): (3) Diabetes mellitus, type 2: (4) Prostate cancer: (5) Urethral stricture: (6) Hematuria: Plan Kamari 79-year-old male with PMH of T2DM, urethral stricture, hematuria, and prostate cancer here due to urinary retention IZA (acute kidney injury): Cr: 2.44 - BUN 35 Obstructive uropathy with concomitant acute renal failure Renal ultrasound: Mild to moderate bilateral hydronephrosis. No stones Antibiotic as below for UTI Avoid nephrotoxic agents for possible BMP ordered for 3 days. Obstructive uropathy Patient presented on 10/01 for difficulty voiding Amador placed in the ED; drained 1L Suspect secondary to urethral stricture in the setting of prostate cancer Urology consulted: keep Amador, follow up outpatient. Possible cystoscopy as outpatient. UTI: UA: Leukocyte Est, WBC IV Ceftriaxone x 2 Urine culture pending Discharge with cefpodoxime 200 mg BID for 5 days Diabetes mellitus, type 2: Last A1c at 8.4% on 09/03/2024 Patient with hyperglycemia 300-350 on Lantus 12 units and Sliding scale while in the hospital. UA with ketones Discontinue glipizide, metformin, sitagliptin New insulin regimen: Lantus Glargine: 30 units and Novolog 10 units with meals. Close follow up with PCP for Medication adjustment T2DM diet (4) Prostate cancer: (5) Urethral stricture: - Follow with urology Total Time Total Time Spent Total Time Spent (In Minutes): <30 Discharge Plan Discharge Items Patient Disposition: Home - Self-Care Reason For Visit: DIFFICULTY VOIDING, IZA Discharge Diagnosis: obstructive uropathy IZA Activity: Per Instructions section Non-emergency contact: Primary Care Provider Call non-emergency contact if: you have any medication questions, your symptoms worsen and your pain is not controlled Follow-up/Referrals: Modesto Mary [Primary Care Provider] - Diet: Carb Consistent or DM2 Ambulatory Orders: Basic Metabolic Panel (Routine) Timeframe: 3 Days Location: Determined by Patient Ordered By: Kasandra Cleaning Attending Provider Instructions: You were in the hospital due to an acute kidney injury. this is secondary due to the ureteral stricture that obstructed your urine output. After placing the Amador, IV hydration Creatinine function are trending down. You were found with a Urinary tract infection as well You will be sent home with Cefpodoxime 200 mg twice a day a day for 5 more days for a total of 7 days. This is an antibiotic to treat infection Follow up with your PCP on Monday with a repeat BMP (Lab work up) to ensure im provement You will be sent home with a Amador Catheter. Follow up with Urology next week Returned to your home medication as previous prescribe. Follow up with your PCP. sugar management: as we discussed, right now with where your kidney numbers are, it's not entirely safe to have you on the metformin, januvia, and glipizide (they're in "shades of royal" with where your numbers are, and as we discussed, i bet over the next few weeks the numbers will improve to where you can get back on your regular regimen - but for now it'll be safer/better to use insulin instead) ---so to be clear: for now, don't take the metformin, januvia or glipizide until Dr Silva "gives you the greenlight" to restart insulins: when we have someone with sugars as high as yours have been, we typically have to use both a long acting insulin to cover your fasting metabolism (your sugar when you're not eating) - but, since the long acting insulin doesn't change at all when you eat, we then add a short acting insulin at meals to take care of the carbs that you eat -as we discussed, there's a little bit of an "educated learning curve" when building someone's insulin regimen since everyone's body responds to insulin a little bit differently -- because of this, i'd expect the regimen to price changer the coming days/weeks; at yet, at the same time, if your kidney numbers improve rapidly, we might be able to throw this regimen away pretty quickly (which would be nice...and if i knew for sure your kidney numbers were going to improve rapidly we'd probably just do the long acting insulin without any mealtime insulin---but since that usually either has people run pretty high after they eat OR crash out with lows when they're asleep/prolonged fasting, it's an narrow situation where it really only makes sense that "if we're doing this, we probably need to do it right" basal insulin (glargine) - this insulin kicks in about 1-2 hours after you take it, doesn't ever really peak in activity, and then slowly wears off over hours 18-24 - we'll have you take 30 units in the morning short acting insulin (novolog) - this insulin kicks in about 15 minutes after you take it, reaches a peak effect about 90 minutes after you take it, and then is totally gone about 3-4 hours after you take it. we'll have you take 10 units at each major meal -the trick with the short acting insulin is that your body needs drastically different amounts of insulin if you're eating a reasonably low-carb meal (such as salmon and asparagus) as opposed to a high carb meal (such as a plate of spaghetti). because of that, it will be really helpful for you and dr silva for you to "grade your work" by checking a sugar about 2 hours after eating/giving yourself the novolog insulin. you'll learn from it because you'll probably see a sugar of 300 in spite of the insulin if you eat something like pasta, but would likely see a much better sugar if you take the novolog and eat something like salmon and asparagus ----a goal for sugar ranges would be to see your readings between 100-150. ---since this is new/different and a "moving target" i'd touch base w Dr Silva / the nursing team at [facility] every few days to review your sugar readings and insulin dosing ---> and again as Dr Silva follows your kidney numbers, hopefully this is all a "short lived major nuisance" Pending Studies at Discharge: No Stand-Alone Forms: My [facility], Smoking Cessation Medications and DC Order Prescriptions: New cefpodoxime 200 mg tablet 200 mg PO Q12H 5 Days Qty: 10 0RF Rx Instructions: must administer with a meal/food insulin glargine [Lantus Solostar U-100 Insulin] 100 unit/mL (3 mL) insulin pen 30 unit subcut QAM Qty: 15 0RF insulin aspart U-100 [Novolog FlexPen U-100 Insulin] 100 unit/mL (3 mL) insulin pen 10 unit subcut AC Qty: 15 0RF Continued multivitamin Tablet 1 tab PO QAM Rx Instructions: Unable to verify OTC meds at this date/time. aspirin 325 mg Tablet 325 mg PO DAILY PRN (Reason: Fever) Rx Instructions: Unable to verify OTC meds at this date/time. acetaminophen 500 mg Tablet 500 mg PO Q6H PRN (Reason: Pain (Scale Score 1-3)) Rx Instructions: Unable to verify OTC meds at this date/time. simvastatin 40 mg Tablet 40 mg PO PM Held glipizide 10 mg Tablet 10 mg PO TIDWMEAL Hold Instructions: Resume on 11/05/24. resume when instructed by dr silva metformin 1,000 mg Tablet 1,000 mg PO BIDM Hold Instructions: Resume on 11/05/24. resume when instructed by dr silva Januvia 100 mg Tablet 100 mg PO QPM Hold Instructions: Resume on 11/05/24. resume when instructed by dr silva Discharge Orders: Discharge Order (Routine); Ordered 10/03/24 Ordered By: Kasandra Balderrama Admission Data Admit Date/Time: 10/01/24 14:00 Attending Provider: Mariusz Purcell Admit Provider: Mariusz Purcell Primary Care Provider: Modesto Mary Other Providers: Mariusz Purcell; Adolph Carnes. Other Interventions: Discharge Summary Assessment (RN) Last Done: 10/03/24 14:22 Supervising Physician Co-Signing Physician Notes I personally examined the patient and verified all dodge points of history and exam, discussed case, and agree with decision making with Dr Saul Balderrama feels good wants to go home. comfortable with amador. discussed DM management in depth (see below). answered all questions to the best of my ability and then provided instructions in writing as well vitals noted, in general he is awake and alert pleasant no distress. HEENT normocephalic atraumatic mucous membranes moist. Cardio slightly tachycardic without rubs murmurs or gallops sinus rhythm on EKG with no ischemic changes, breathing is unlabored no rales rhonchi or wheezes. Skin shows no rashes no pallor or icterus. Neuro without focal deficits. Obstructive uropathyalmost certainly due to BPHdoes still have an IZA with a GFR right around 30making some of his diabetes medicines more risky right now (see below). Hopefully this will improve with ongoing Amador drainagecontinue catheter. Safe/stable for home. Outpatient follow-up of basic metabolic panel and short order. Outpatient urology follow-up in 1-2 weeks. Has good reliable PCP follow-up. Uncontrolled diabetesdue to his IZA and GFR under 30 (improving but still right around 30) his home med regimen is a bit more concerning as it relates to risk/benefit and his creatinine clearanceand yet unfortunately, his sugars have been as high as the mid 300s off of those medications. Discussed right now and insulin regimen is probably the only safe way to manage things, and with his hyperglycemia being so severe off of his medications, while the convenience of an all basal regimen would be appealing, I highly doubt it would affect decent glycemic control (either having postprandial hyperglycemia's, fasting lows, highs all across the board, or some bad semblance of all of the above)so while I was quite hesitant to build a basal bolus regimen for him so quickly/that may actually only be needed for a short time. If his kidney recovery is fasthis severity of hyperglycemia combined with his currently low GFR made this appear to be the only option. Based on his insulins inpatient (he had about 45 units over the prior 24 hours with sugars still in the high 200 to mid 300s) sending out on Lantus 30 with log about 10 at each mealencouraged to check fasting and postprandial glucoses, and follow closely with his PCP. Should his kidney function never recover to where he can resume his prior orals, obviously he will need to be taught some type of carb counting, but hopefully this will not be necessary. Again I considered simpler regimens, but with the severity of his hyperglycemia combined with a subthirty GFR, nothing else really appeared to be viable in a way that would improve his wellbeing. Tachycardiasinus without ischemia, asymptomatiche is very anxious to leave the hospital and he and I both agree that that may even be part of why his heart rate is up Resident Activity Tracking Resident Involvement: Resident Care Provided Care Provided: Adult [facility]
[2024-10-03] MEDS: cefTRIAXone SODIUM 1,000 MG/50 ML BAG IV STA (12:13)
--- NOTE | 2024-10-03 14:11 | Electrocardiogram Report ---
Test Reason : Blood Pressure : */* mmHG Vent. Rate : 108 BPM Atrial Rate : 108 BPM P-R Int : 154 ms QRS Dur : 116 ms QT Int : 372 ms P-R-T Axes : 40 46 39 degrees QTcB Int : 498 ms Sinus tachycardia Incomplete right bundle branch block Otherwise normal ECG When compared with ECG of 30-May-2018 14:55, No significant change Confirmed by Arron Lind ([id number]) on 10/03/2024 2:11:33 PM Referred By: REFERRED SELF Confirmed By: Arron Lind
--- NOTE | 2024-10-03 18:29 | Billing Data ---
Date of Service October 03, 2024 Coding Level of Care Code 29360 IN/OBS DISCH 30 MIN/LESS
== END 2024-10-03 15:38 | disposition home or self-care (01) ==
LOC: EDINP 11:05 → ED 11:05 → SUATTDRO 14:00 → 3N 14:43

== ENCOUNTER 2024-10-24 05:13 | Observation (INO) ==
--- NOTE | 2024-10-21 08:57 | Anesthesiology Consultation ---
Date of Service October 21, 2024 Assessment & Plan (1) Encounter for pre-operative examination: Plan - check BSG am DOS. - discharge summary 10/03/24 [facility]: "...IZA (acute kidney injury): Cr: 2.44 - BUN 35. Obstructive uropathy with concomitant acute renal failure...Amador placed in the ED; drained 1L. Suspect secondary to urethral stricture in the setting of prostate cancer...UTI...IV Ceftriaxone x 2...Discontinue glipizide, metformin, sitagliptin. New insulin regimen: Lantus Glargine: 30 units and Novolog 10 units with meals..." - Per control operator on 10/16/24: No known infectious disease contacts, current infectious disease symptoms in past 10 days or COVID positive test result in the past 30 days. Chart Review Chart Review: Acceptable Risk for Surgery and Patient NOT seen in Pre Admission Testing History Surgery Operation Date: 10/24/24 14:20 Proposed Procedures p TURP (Transurethral Resection of the Prostate), Possible Dilation, Possible Biopsy - Pedro Myrick DO Height/Weight Height: 5 ft 8 in Weight: 71.668 kg Allergies Allergy/AdvReac Type Severity Reaction Status Date / Time No Known Allergies Allergy Unverified 10/16/24 10:19 Medications Home Medications Medication Instructions Recorded Confirmed Last Taken acetaminophen 500 mg tablet 500 mg PO Q6H PRN Pain (Scale 05/28/18 10/16/24 Unknown Score 1-3) aspirin 325 mg tablet 325 mg PO DAILY PRN Fever 05/28/18 10/16/24 Unknown glipizide 10 mg tablet 10 mg PO TIDWMEAL 05/28/18 10/16/24 06/20/18 17:00 metformin 1,000 mg tablet 1,000 mg PO BIDM 05/28/18 10/16/24 06/19/18 multivitamin 1 tab PO QAM 05/28/18 10/16/24 06/18/18 simvastatin 40 mg tablet 40 mg PO PM 05/28/18 10/16/24 06/19/18 sitagliptin phosphate 100 mg 100 mg PO QPM 05/28/18 10/16/24 06/19/18 tablet (Januvia) insulin aspart U-100 100 unit/mL 10 unit (0.1 mL) subcut AC #15 mL 10/03/24 10/16/24 Unknown (3 mL) subcutaneous pen (Novolog FlexPen U-100 Insulin aspart) insulin glargine 100 unit/mL (3 30 unit subcut HS 10/16/24 10/16/24 Unknown mL) subcutaneous pen (Lantus Solostar U-100 Insulin) nitrofurantoin 100 mg PO Q12H 7 days #14 caps 10/16/24 Unknown monohydrate/macrocrystals 100 mg capsule (Macrobid) Past Medical History Medical History (Updated 10/21/24 @ 08:55 by Rosemary Garcia PA-C) IZA (acute kidney injury) during [facility] hospitalization 10/01/24-10/03/24; creat improved (but not back to baseline) prior to D/C BPH (benign prostatic hyperplasia) Diabetes mellitus type 2, controlled previously on orals; switched to short and LA insulin during [facility] hospitalization 10/01/24-10/03/24; Ha1c 8.4% 09/03/[address] placed during 10/01/24-10/03/24 hospital admission for obstructive uropathy 2/2 stricture 2/2 prostate ca; remains in place History of recent hospitalization 10/01/24-10/03/24 [facility]; dx: urinary retention/obstructive uropathy (2/2 stricture in setting of prostate Ca->amador placed), IZA (obstructive uropathy with concomitant ARF-> improved but not resolved prior to D/C), UTI (tx with Abx), DMII (orals on hold and started on shot and long acting insulin) Hyperlipidemia Prostate cancer s/p XRT 2005 Tachycardia chronic; 'always slightly tachycardic' White coat syndrome without diagnosis of hypertension Past Surgical History Surgical History H/O cystoscopy cysto, bladder bx, urethral dilation 06/21/2018: GA: LMA#4 without issue S/P hernia surgery inguinal Social History Smoking Status: Never smoker Do You Dip or Chew Tobacco: No Hx Alcohol Use: Yes alcohol intake frequency: a few times a month Hx Substance Use: No substance use type: does not use
[2024-10-24] MEDS: LACTATED RINGER'S 1,000 ML IV SCH (05:50)
[2024-10-24] MEDS ORDERED: PROPOFOL IV EMULSION 10 MG/ML 20 ML VIAL IV ONE (06:46)
[2024-10-24] MEDS: INSULIN ASPART PER UNIT CHARGE SC STA (06:46)
[2024-10-24] MEDS ORDERED: DEXAMETHASONE SOD INJ 4 MG/ML VIAL ONE (06:46)
[2024-10-24] MEDS ORDERED: ONDANSETRON INJ 2 MG/ML 2 ML VIAL ONE (06:46)
[2024-10-24] MEDS ORDERED: LIDOCAINE 2% 2 ML VIAL/AMP(20MG/ML) INFIL ONE (06:46)
[2024-10-24] MEDS ORDERED: MIDAZOLAM HCL 1 MG/ML 2ML VIAL ONE (06:47)
[2024-10-24] MEDS ORDERED: fentaNYL citrate PF 100 MCG/2 ML VIAL ONE (06:47)
[2024-10-24] MEDS ORDERED: GLYCOPYRROLATE 0.2 MG/ML VIAL ONE (06:50)
--- NOTE | 2024-10-24 06:54 | History & Physical Bridge Note ---
Date of Service October 24, 2024 History & Physical Bridge Note I have examined the patient, reviewed the History & Physical and in the interval since the performance of the History & Physical I have noted the following changes of clinical significance: no changes noted
[2024-10-24] MEDS ORDERED: MoRPHine SULFATE 2 MG/ML CARP IV PRN (07:01)
[2024-10-24] MEDS ORDERED: oxyCODONE/ACETAMINOPHEN 5mg/325mg TAB PO PRN (07:01)
[2024-10-24] MEDS ORDERED: PHENAZOPYRIDINE HCL 200 MG TAB PO PRN (07:01)
[2024-10-24] MEDS ORDERED: oxyBUTYnin chloride 5 MG TAB PO PRN (07:01)
[2024-10-24] MEDS ORDERED: ATROPINE SULFATE 0.1 MG/ML 10ML SYR IV PRN (07:09)
[2024-10-24] MEDS ORDERED: ePHEDrine sulfate 50 MG/ML AMP IV PRN (07:09)
[2024-10-24] MEDS ORDERED: PROMETHAZINE HCL 6.25 MG in SODIUM CHLORIDE 0.9% 50 ML IV PRN (07:09)
[2024-10-24] MEDS: cefTRIAXone SODIUM 1,000 MG MINI-B 50 ML IV SCH (07:12)
[2024-10-24] MEDS: CIPROFLOXACIN / D5W 400 MG/200 ML BAG IV SCH (07:25)
[2024-10-24] MEDS ORDERED: PHENYLEPHRINE HCL 10 MG/ML VIAL ONE (07:41)
--- NOTE | 2024-10-24 08:04 | Operative Report ---
PG Post Operative Report Pre & Post Diagnosis Operation Date: 10/24/24 07:15 Pre-Op Diagnosis: Urinary Retention, Prostate Cancer, Urethral Stricture Post-Op Diagnosis: Urinary Retention, Prostate Cancer, Urethral Stricture I identified the patient and participated in the time-out.: Yes Procedure Operation Date: 10/24/24 07:15 Actual Procedures TURP (Transurethral Resection of the Prostate), Urethral Dilation, extraction of bladder stones, Fulguration of bladder ulcer. - Pedro Myrick DO Surgeon Pedro Myrick, II, DO Physics Technician None Estimated Blood Loss 5 Findings Consistent with Post-Op Diagnosis Bulbar urethral stricture. Small bladder stone under 1 cm in size. Irritation and ulcerated. Large Prostate with obstruction. Specimens Prostate adenoma. Drains 22Fr 3-way Catheter Anesthesia Type General Complications none Disposition Disposition: Recovery Room Indications Patient with obstruction due to prostate enlargement. Risks and benefits discussed at length. Description of Procedure Patient was consented and brought back to the operating room. Patient was placed under anesthesia in the supine position and moved to the dorsal lithotomy position. Patient was prepped and draped in the regular sterile fashion. A time out was completed. A 30degree Cystoscope was placed into the urethra and advanced. A significant stricture was discovered in the bulbar urethra. This was dilated. The scope was advanced. No injury or other problems. The scope advanced to the bladder and the entire bladder was examined. The UO's were identified as well as the bladder neck, trigone, dome, and the other important landmarks. The prostatic urethra and large lobes/adenoma was assessed and the veru and bladder neck identified and area/size was assessed. A small bladder stone was discovered and extraction. There was two areas of ulceration on the posterior wall with significant inflammation. The resection scope was placed and the fine bipolar loop was selected. Starting at the 5 and 7 o'clock positions, a channel was created from bladder neck to the veru. At 1 and 11 o'clock position the prostate was resected down to capsule and then swept down to the channel. The Specimen was removed and sent for analysis. The resection bed and any bleed ing areas were fulgurated/cauterized and the entire area inspected. All bleeding was controlled. The two ulcerated lesions at the bladder wall were then fulgurated. All bleeding was controlled. The bladder was inspected a final time. The bladder was emptied and irrigated. All specimen and debris was removed. The scope was removed with the bladder partially full. A catheter was placed and balloon elevated. This was easily irrigated. The patient was cleaned, aroused from anesthesia, and transferred to the pacu in stable condition having tolerated the procedure well with no complications. I was present and participated in all aspects of the procedure. The patient will be monitored in the PACU until transferred. Will observe overnight. Plan to maintain catheter for approx 10 days and followup for pathology. I attest to the content of the Intraoperative Record and any orders documented therein. Any exceptions are noted below.
[2024-10-24] MEDS: fentaNYL citrate PF 100 MCG/2 ML VIAL IV PRN (08:20)
[2024-10-24 08:59] LABS: Hematocrit (blood only) 29.2 % (42.0-52.0); Hemoglobin 9.6 g/dl (14.0-18.0); Mean Corpuscular Hemoglobin 31.4 pg (25.0-34.0); Mean Corpuscular Hgb Conc 32.9 g/dL (32.0-36.0); Mean Corpuscular Volume 95.4 fL (80.0-100.0); Mean Platelet Volume 9.2 fL (9.4-12.4); Platelet Count 256 K/uL (130-400); RDW Coefficient of Variation 12.6 % (11.5-14.5); RDW Standard Deviation 43.7 fL (36.4-46.3); Red Blood Count 3.06 M/uL (4.70-6.10); White Blood Count 6.09 K/ul (4.8-10.8)
[2024-10-24 09:12] LABS: Albumin Globulin Ratio 1.3 (0.9-2); Albumin Level 3.4 gm/dl (3.4-5.0); BUN Creatinine Ratio 11.9 (10-20); Bilirubin,Total 0.3 mg/dl (0.2-1.0); Calcium 8.8 mg/dl (8.6-10.3); Creatinine Clr Calc Pharmacy 42.5 ml/min; Globulin 2.6 gm/dl (2.5-4.0); Potassium 3.7 mmol/L (3.5-5.1)
--- NOTE | 2024-10-24 09:28 | Anesthesiology Progress Note ---
Date of Service October 24, 2024 Anesthesia Post Procedure Vital Signs Vital Signs: Temp Pulse Pulse Resp BP Pulse Ox O2 Del Method 10/24/24 09:20 93 H 12 116/69 94 Room Air 10/24/24 09:10 36.4 C L 95 H 20 124/67 95 Room Air 10/24/24 09:00 94 H 18 126/73 99 Oxymask 10/24/24 08:50 92 H 15 122/76 98 Oxymask 10/24/24 08:40 96 H 15 134/84 97 Oxymask 10/24/24 08:30 95 H 18 129/87 100 Oxymask 10/24/24 08:20 98 H 20 155/89 H 100 Oxymask 10/24/24 08:10 103 H 16 156/89 H 100 Oxymask 10/24/24 08:07 36.1 C L 104 H 12 157/97 H 98 Oxymask 10/24/24 05:56 36.7 C 104 H 20 160/96 H 99 Room Air O2 Flow Rate 10/24/24 09:20 10/24/24 09:10 10/24/24 09:00 2 10/24/24 08:50 2 10/24/24 08:40 2 10/24/24 08:30 2 10/24/24 08:20 3 10/24/24 08:10 6 10/24/24 08:07 6 10/24/24 05:56 Pain Intensity Right Abdomen: Pain Intensity: 1 Other: Pain Intensity: 4 Transfer of Care Handoff Completed per policy Notes Mental Status: alert / awake / arousable and participated in evaluation Nausea / Vomiting: adequately controlled Pain: adequately controlled Airway Patency, RR, SpO2: stable & adequate BP & HR: stable & adequate Hydration State: stable & adequate Anesthetic Complications: no major complications apparent and Pt Satisfied with anesthetic care
[2024-10-24] MEDS: NovoLIN-R INSULIN PER UNIT CHARGE ONE (09:46)
[2024-10-24] MEDS: CIPROFLOXACIN 400MG / 200ML D5W IV ONE (09:46)
[2024-10-24] MEDS: NON-FORMULARY MEDICATION (Insulin Aspart U-100 [Novolog Flexpen U-100 Insulin] 100 unit/mL SQ SCH (09:55)
[2024-10-24] MEDS: DOCUSATE SODIUM 100 MG CAP PO SCH (09:59)
[2024-10-24] MEDS ORDERED: PHARMACY GLYCEMIC MGMT CONSULT PRN (10:08)
[2024-10-24] MEDS ORDERED: CARBOHYDRATES FOR HYPOGLYCEMIA PO PRN (10:15)
[2024-10-24] MEDS ORDERED: DEXTROSE 50% 50 ML SYRINGE IV PRN (10:15)
[2024-10-24] MEDS ORDERED: GLUCOSE 10 TAB/TUBE PO PRN (10:15)
[2024-10-24] MEDS ORDERED: GLUCAGON FOR INJ 1 MG VIAL SQ PRN (10:15)
[2024-10-24] MEDS ORDERED: GLUCOSE 40% GEL 15 GM TUBE PO PRN (10:15)
[2024-10-24] MEDS: INSULIN ASPART PER UNIT CHARGE SC SCH (12:12)
--- NOTE | 2024-10-24 14:04 | Pharmacy Report ---
Pharmacy Glycemic Short Note 2 - Date of Service October 24, 2024 - Glycemic Short BSG Results (Last 24 hours): 10/24/24 10/24/24 10/24/24 05:44 07:10 08:10 Glucose POC Glucose 278 H 284 H 247 H 10/24/24 10/24/24 10/24/24 08:28 09:53 11:49 Glucose 191 H POC Glucose 113 H 148 H OUTPATIENT ANTIDIABETIC REGIMEN: * Lantus 30 units hs, Novolog 10 units AC, glipizide 10 mg tid, metformin 1 gm bid, januvia 100 mg daily ASSESSMENT: * 79 year old s/p surgery, POD 0 - pharmacy consulted for glycemic management. Type 2 diabetic, A1c 8.4% 09/2024. BSGs elevated this AM in OR >250s, given 10 units of correctional insulin. Trending down at lunch time 148 mg/dL - will add in novolog scale. Patient previously discharged from hospital earlier this month, appears outpatient insulin regimen was adjusted at the time of discharge. * Clear diet started postop, appears IV dexamethasone pulled in OR - potential concern for steroid induced hyperglycemia possible. * Will have scale for Lantus at HS 25-35 units depending on BSG value. PLAN FOR INPATIENT GLYCEMIC CONTROL: * Hold outpatient oral diabetes medications * Basal insulin * Lantus 25-35 units hs * Bolus insulin * NovoLog per scale ACHS or Q6hrs while NPO * Goal Range: Low 110 mg/dL - High 140 mg/dL * Correction Factor: 30 mg/dL/unit * Nutritional / Prandial insulin per carb ratio of 1 unit per 9 grams CHO consumed
--- NOTE | 2024-10-24 14:25 | Hospitalist Consultation ---
Date of Consultation October 24, 2024 Assessment & Plan (1) Diabetes mellitus, type 2: (2) Acute blood loss anemia (ABLA): (3) Prostate cancer: (4) Urethral stricture: (5) Hyperlipidemia: Plan Patient is an 79-year-old male with a past medical history of type II DM, CKD, prostate cancer s/p radiation. Hospitalist team was consulted for postoperative management of diabetes s/p TURP with urology. #T2DM history of type II DM on glipizide 10 Mg 3 times daily, metformin 1G twice daily, Januvia 100 Mg daily, Lantus 30U at bedtime, NovoLog 10U AC Was recently started on insulin during admission 10/03 Holding home glipizide, metformin, Januvia Pharmacy glycemic consult placed - Lantus 25 to 35 units HS - NovoLog goal range 110-140, CF 30, carb ratio 9 #ABLA s/p TURP chronically anemic, baseline Hgb between 11.3-12 Hgb 9.6 postoperatively Trend CBC #prostate CA/ urethral stricture s/p TURP with bladder stone extraction 10/24 Pain management, VTE PPx, and bowel regimen per urology team continue Cipro and Rocephin pre-op H&H stable, renal function stable, EKG RBBB AM CBC and CMP #HLD continue statin VTE ppx: scd Diet: t2dm Dispo: med surg - hopeful to dc home in AM Supervising Physician Co-Signing Physician Notes I personally saw and examined the patient. I independently reviewed the labs, imaging, problem list, medication list, past medical history and family history. I verified all dodge points and agree with Namita Mendoza PA-C with the following exceptions and/or additions: No acute concerns or question from patient. HS RRR, no murmurs, Chest CTAB, Abdo SNT. No change to plan above. History of Present Illness Reason for Consultation: Dm, CKD Requesting Physician: Dr. Myrick Attending Physician: Pedro Myrick, II, DO History of Present Illness Patient is an 79-year-old male with a past medical history of type II DM, CKD, prostate cancer s/p radiation. Hospitalist team was consulted for postoperative management of diabetes and CKD s/p TURP with urology. Patient was hospitalized in early October for an IZA, UTI, urinary retention, and obstructive uropathy. He had a Amador catheter and that was removed by urology and was referred for a cystoscopy. During this admission patient was also found to be hyperglycemic, he was started on Lantus and NovoLog insulin at this time. Patient seen at bedside, doing well postoperatively. He stated he has some abdominal discomfort. He tolerate clear and regular diet for lunch. He denies dizziness, lightheadedness, chest pain, dyspnea, nausea. He is hopeful to return to [facility] in AM. Allergies Allergy/AdvReac Type Severity Reaction Status Date / Time No Known Allergies Allergy Unverified 10/24/24 05:46 Home Medications Medication Instructions Recorded Confirmed Type acetaminophen 500 mg tablet 500 mg PO Q6H PRN Pain (Scale 05/28/18 10/24/24 History Score 1-3) aspirin 325 mg tablet 325 mg PO DAILY PRN Fever 05/28/18 10/24/24 History glipizide 10 mg tablet 10 mg PO TIDWMEAL 05/28/18 10/24/24 History metformin 1,000 mg tablet 1,000 mg PO BIDM 05/28/18 10/24/24 History multivitamin 1 tab PO QAM 05/28/18 10/24/24 History simvastatin 40 mg tablet 40 mg PO PM 05/28/18 10/24/24 History sitagliptin phosphate 100 mg 100 mg PO QPM 05/28/18 10/24/24 History tablet (Januvia) insulin aspart U-100 100 unit/mL 10 unit (0.1 mL) subcut AC #15 mL 10/03/24 10/24/24 Rx (3 mL) subcutaneous pen (Novolog FlexPen U-100 Insulin aspart) insulin glargine 100 unit/mL (3 30 unit subcut HS 10/16/24 10/24/24 History mL) subcutaneous pen (Lantus Solostar U-100 Insulin) doxycycline hyclate 100 mg tablet 100 mg PO BID 7 days #14 tabs 10/25/24 Rx Patient History Medical History IZA (acute kidney injury) during [facility] hospitalization 10/01/24-10/03/24; creat improved (but not back to baseline) prior to D/C BPH (benign prostatic hyperplasia) Diabetes mellitus type 2, controlled previously on orals; switched to short and LA insulin during [facility] hospitalization 10/01/24-10/03/24; Ha1c 8.4% 09/03/[address] placed during 10/01/24-10/03/24 hospital admission for obstructive uropathy 2/2 stricture 2/2 prostate ca; remains in place History of recent hospitalization 10/01/24-10/03/24 [facility]; dx: urinary retention/obstructive uropathy (2/2 stricture in setting of prostate Ca->amador placed), IZA (obstructive uropathy with concomitant ARF-> improved but not resolved prior to D/C), UTI (tx with Abx), DMII (orals on hold and started on shot and long acting insulin) Hyperlipidemia Prostate cancer s/p XRT 2005 Tachycardia chronic; 'always slightly tachycardic' White coat syndrome without diagnosis of hypertension Surgical History H/O cystoscopy cysto, bladder bx, urethral dilation 06/21/2018: GA: LMA#4 without issue S/P hernia surgery inguinal Social History Smoking Status: Never smoker Second Hand Exposure: No; Do You Dip or Chew Tobacco: No; Hx Alcohol Use: Yes Hx Substance Use: No Preferred Language: Azeri Communication Ability: Effective Fisher Sponge Hooking Required: No Beliefs That Will Affect Care: None Current Living Situation: Alone Current Living Situation Comment: [facility] independent [facility] Feels Safe at Home: Yes Assistive Devices: Cane and Glasses Review of Systems Review of Systems: see HPI Physical Exam Physical Exam: The patient is awake, alert and oriented 3, well developed and well nourished, normocephalic and atraumatic, in no acute distress. Non-toxic appearing. HEENT- EOMI, mucous membranes moist. Hearing grossly intact. Heart-normal S1 and S2. No murmurs, rubs or gallops. Lungs-clear bilaterally, no respiratory distress, no accessory muscle use. Abdomen-normal bowel sounds and soft. No ascites noted. Non-tender. Extremities- no clubbing, cyanosis, or edema. Rheumatologic-normal range of motion. Psychiatric-normal affect. Genitourinary: amador catheter draining yellow urine, no gross hematuria Results & Data Results & Data Vital Signs (Past 12 Hours) Vital Signs Temp Pulse Pulse Resp BP Pulse Ox O2 Del Method 10/24/24 12:40 36.5 C 90 14 112/66 99 Room Air 10/24/24 11:40 36.6 C 96 H 16 137/79 99 Room Air 10/24/24 10:40 36.6 C 92 H 16 128/69 100 Room Air 10/24/24 10:12 36.3 C L 88 18 147/79 H 97 Room Air 10/24/24 10:10 36.5 C 92 H 16 133/75 100 Room Air 10/24/24 09:40 36.5 C 92 H 16 124/74 99 Room Air 10/24/24 09:20 93 H 12 116/69 94 Room Air 10/24/24 09:10 36.4 C L 95 H 20 124/67 95 Room Air 10/24/24 09:00 94 H 18 126/73 99 Oxymask 10/24/24 08:50 92 H 15 122/76 98 Oxymask 10/24/24 08:40 96 H 15 134/84 97 Oxymask 10/24/24 08:30 95 H 18 129/87 100 Oxymask 10/24/24 08:20 98 H 20 155/89 H 100 Oxymask 10/24/24 08:10 103 H 16 156/89 H 100 Oxymask 10/24/24 08:07 36.1 C L 104 H 12 157/97 H 98 Oxymask 10/24/24 05:56 36.7 C 104 H 20 160/96 H 99 Room Air O2 Flow Rate 10/24/24 12:40 10/24/24 11:40 10/24/24 10:40 10/24/24 10:12 10/24/24 10:10 10/24/24 09:40 10/24/24 09:20 10/24/24 09:10 10/24/24 09:00 2 10/24/24 08:50 2 10/24/24 08:40 2 10/24/24 08:30 2 10/24/24 08:20 3 10/24/24 08:10 6 10/24/24 08:07 6 10/24/24 05:56 Laboratory Results Reviewed CBC and CMP ECG Additional Comments: pre-op 10/03/24 - sinus tachycardia (rate 108), incomplete RBBB PG Care Time/CCT Total # of Minutes Spent Total Time Spent with Patient: Total time spent is greater than 50% in coordination of care (as documented) at patient's floor/unit and/or counseling patient: Coding Level of Care Code 91877 IN/OBS CONSULT LVL 4,60M Diagnoses Diabetes mellitus, type 2 E11.9 Acute blood loss anemia (ABLA) D62 Prostate cancer C61 Urethral stricture N35.919 Urethral stricture sex-location: male urethra-unspecified Urethral stricture type: unspecified stricture type Hyperlipidemia E78.5 (4) Urethral stricture Urethral stricture sex-location: male urethra-unspecified Urethral stricture type: unspecified stricture type Qualified Code(s): N35.919 - Unspecified urethral stricture, male, unspecified site
[2024-10-24] MEDS: SIMVASTATIN 40 MG TAB PO SCH (20:33)
[2024-10-24] MEDS: LANTUS PER UNIT CHARGE SC SCH (20:41)
[2024-10-24] MEDS ORDERED: SITagliptin PHOSPHATE 100 MG TAB PO SCH (21:00)
[2024-10-24] MEDS ORDERED: LANTUS PER UNIT CHARGE SC SCH (21:00)
[2024-10-25] MEDS: INSULIN ASPART PER UNIT CHARGE SC SCH (01:01)
[2024-10-25 03:43] VITALS: O2SAT 97
[2024-10-25 07:18] LABS: Hematocrit (blood only) 31.6 % (42.0-52.0); Hemoglobin 10.6 g/dl (14.0-18.0); Mean Corpuscular Hemoglobin 31.2 pg (25.0-34.0); Mean Corpuscular Hgb Conc 33.5 g/dL (32.0-36.0); Mean Corpuscular Volume 92.9 fL (80.0-100.0); Platelet Count 248 K/uL (130-400); RDW Coefficient of Variation 12.5 % (11.5-14.5); RDW Standard Deviation 42.9 fL (36.4-46.3); White Blood Count 9.49 K/ul (4.8-10.8)
[2024-10-25 07:33] VITALS: BP 129/70; PULSE 94; RESP 16; TEMP 97.7
[2024-10-25 07:41] LABS: Albumin Globulin Ratio 1.1 (0.9-2); Albumin Level 3.5 gm/dl (3.4-5.0); Bilirubin,Total 0.5 mg/dl (0.2-1.0); Calcium 9.3 mg/dl (8.6-10.3); Globulin 3.2 gm/dl (2.5-4.0); Magnesium 1.7 mg/dl (1.7-2.4); Total Protein 6.7 gm/dl (6.0-8.3)
[2024-10-25 07:59] LABS: Ferritin 67.3 ng/ml (8-388)
--- NOTE | 2024-10-25 08:32 | Hospitalist Progress Note ---
Date of Service October 25, 2024 Assessment & Plan (1) Prostate cancer: (2) Urethral stricture: (3) Acute blood loss anemia (ABLA): (4) Diabetes mellitus, type 2: (5) Hyperlipidemia: Plan Patient is an 79-year-old male with a past medical history of type II DM, CKD, prostate cancer s/p radiation. Hospitalist team was consulted for postoperative management of diabetes s/p TURP with urology. Was admitted/dc earlier this month for difficulty voiding/catheter placed for drainage 1L with IZA w/ Cr 2.33 from baseline ~1.2 #prostate CA/ urethral stricture s/p TURP with bladder stone extraction by Dr Myrick on 10/24. 3 way catheter placed, management per primary service -TURP completed due to worsening issues with voiding and found to have significant retention w/ hydronephrosis and sx. Also hx urethral stricture and obstruction Notable urine cx from 10/15 from urology note/visit for hematuria grew enterococcus faecalis, ?was this treated. --Message sent to primary service -- reports macrobid x 7 days Remained on Cipro/Rocephin in the meantime, plans to continue FLQ at dc per discussion with Urology Amador to remain in place/per Urology however highly encouraged keeping in place w/ his constipation and declined bowel regimen prior to dc/suppository and wanting to wait til he gets home. Did discuss hgb stable 10.6 however iron studies indicating benefit from replacement but would AVOID PO given constipation and could consider in f/u once moving bowels B12 borderline/discussed rec for B12 at dc Remainder of post-op management per primary service, patient hopeful to return to [facility] today, ?need for PT eval given age/procedure, will place in case needed to return. Hospitalist service signing off, please call with any questions/concerns. #ABLA as above, 2nd to hematuria w/ recent infection as well as acute on chronic B12 borderline on check, PO supp started/would continue at dc as discussed and urology sending Iron studies w/ iron 33, trans % sat 10, ferritin 67.3. Could consider Venofer vs PO iron (pending issues w/ constipation) --> CONSTIPATION at baseline/likely gastroparesis, avoid PO but can consider once moving bowels vs Venofer in f/u with PCP #T2DM history of type II DM on glipizide 10 Mg 3 times daily, metformin 1G twice daily, Januvia 100 Mg daily, Lantus 30U at bedtime, NovoLog 10U AC Was recently started on insulin during admission 1/2 Held home meds/pharmacy consulted while inpatient. Notable he held his insulin prior to procedure and reported BSG was ~400s prior to coming in. Much better while inpatient and will need outpt f/u B12 checked as above given metformin use/chronic anemia and low normal and PO started/continued at dc as outlined #HLD continue statin VTE ppx: scd while inpatient Dispo: plan for dc back to [facility]. Case discussed w/ Urology MICKY and hospitalist service will sign off as going home. Should be on bowel regimen at home/prevent constipation issues to prevent retention. Please call with any questions/concerns. Admission and Anticipated Discharge Date Admission Date: October 24, 2024 Supervising Physician Co-Signing Physician Notes The patient was not seen by me. The chart was reviewed. Case discussed with JENI Spivey. Agree with assessment and plan Subjective Eval this morning, reports waiting for urology and hopeful dc. Catheter looks good, clear yellow in 3 way, defer removal to urology but does have abdominal distension/last BM Monday reported and slow bowel souds but reports gas and thinks will move at home. Discussed suppository if agreeable but also messaged primary would avoid PO iron given constipation, recs for PO B12. Rec bowel regimen. He notes he did complete prior course macrobid w/ exception pill right before he came. Also noted he didn't take his insulin prior to procedure for fears of low but was 400s prior to procedure . Encouraged compliance/monitoring and close f/u at dc. PT therapy eval placed. Physical Exam 2 Physical Exam: 79 talkative male sitting up in recliner chair, anxious to see urology so he can be discharged, waiting to see about removal of amador HEENT: head atraumatic, normocephalic, mmm Resp: even/unlabored, no wheezing, on room air CV: RRR, no significant m/r/g,, no pitting edema GI: +BS throughout but slow, +distension but no overt tenderness and reported decline suppository/bowel regimen and wanting to go at home : amador draining clear urine, no hematuria/sediment MSK/Neuro: nonfocal, answering questions appropriately, no slurred speech/facial droop Psych; AOx3, cooperative with exam, wanting to go home Results & Data Results & Data Vital Signs (Past 12 Hours) Vital Signs Temp Pulse Resp BP Pulse Ox O2 Del Method 10/25/24 07:32 36.5 C 94 H 16 129/70 97 Room Air 10/25/24 03:42 36.9 C 91 H 18 130/81 97 Room Air 10/25/24 00:40 37.0 C 87 18 144/73 H 98 Room Air 10/24/24 20:46 36.7 C 87 16 148/84 H 97 Room Air Laboratory Results 10/25/24 07:04 10/25/24 07:04 Mag 1.7 Iron 33, TIBC 325, transferrin 232, trans % sat 10%, ferritin 67.3 B12 322 PG Care Time/CCT Total # of Minutes Spent Total Time Spent with Patient: Total time spent is greater than 50% in coordination of care (as documented) at patient's floor/unit and/or counseling patient: Coding Level of Care Code 68793 SUB INP/OBS CARE 3/50MIN Diagnoses Prostate cancer C61 Urethral stricture N35.919 Urethral stricture sex-location: male urethra-unspecified Urethral stricture type: unspecified stricture type Acute blood loss anemia (ABLA) D62 Diabetes mellitus, type 2 E11.9 Hyperlipidemia E78.5 (2) Urethral stricture Urethral stricture sex-location: male urethra-unspecified Urethral stricture type: unspecified stricture type Qualified Code(s): N35.919 - Unspecified urethral stricture, male, unspecified site
[2024-10-25] MEDS: CYANOCOBALAMIN (B-12) 500 MCG TABLET PO SCH (09:36)
--- NOTE | 2024-10-25 10:37 | Urology Progress Note ---
Date of Service October 25, 2024 Assessment & Plan (1) Elevated PSA: (2) Urethral stricture: (3) Urinary retention: Plan POD #1 s/p TURP (Transurethral Resection of the Prostate), Urethral Dilation, extraction of bladder stones, Fulguration of bladder ulcer with Dr. Myrick Doing well, progressing as expected Medicine consulted postoperatively for comorbidities- appreciate recommendations Pt afebrile with stable vitals Labs reviewed - WBC 9.49, Hemoglobin 10.6, Creatinine 1.[address] Lance catheter intact, patent and draining clear urine with CBI on slow CBI clamped @1000, nursing aware - will reassess later this AM Maintain Lance catheter Anticipate home with Lance catheter later today presuming urine appropriate and he continues to progress as expected Expected clinical course reviewed, all questions answered Will arrange outpatient follow-up with our service for voiding trial Patient reassessed Urine remains clear off CBI Remains afebrile and hemodynamically stable He is eager to be discharged We discussed recommendation for bowel regimen to prevent constipation Reviewed discharge instructions Patient stable for discharge home today with Lance catheter Admission and Anticipated Discharge Date Admission Date: October 24, 2024 Subjective Patient seen at bedside today Awake and sitting in bedside chair on arrival No acute distress Lance draining clear yellow urine with CBI on slow No reported pain Denies fever, chills, nausea, vomiting Ambulated without issue Tolerating diet Eager for discharge home today Review of Systems Constitutional: as per Subjective / HPI Genitourinary: + as per Subjective / HPI Physical Exam Constitutional: no acute distress Respiratory: no respiratory distress and no labored breathing Neurologic: moves all extremities and awake Psychiatric: A+Ox3, euthymic affect Genitourinary: Lance intact and draining yellow urine Results & Data Vital Signs (Past 12 Hours) Vital Signs Temp Pulse Resp BP Pulse Ox O2 Del Method 10/25/24 07:32 36.5 C 94 H 16 129/70 97 Room Air 10/25/24 03:42 36.9 C 91 H 18 130/81 97 Room Air 10/25/24 00:40 37.0 C 87 18 144/73 H 98 Room Air PG Care Time/CCT Total # of Minutes Spent Total Time Spent with Patient: Total time spent is greater than 50% in coordination of care (as documented) at patient's floor/unit and/or counseling patient: Coding Level of Care Code None Diagnoses Elevated PSA R97.20 Urethral stricture N35.919 Urethral stricture sex-location: male urethra-unspecified Urethral stricture type: unspecified stricture type Urinary retention R33.9 (2) Urethral stricture Urethral stricture sex-location: male urethra-unspecified Urethral stricture type: unspecified stricture type Qualified Code(s): N35.919 - Unspecified urethral stricture, male, unspecified site
[2024-10-25] MEDS: CIPROFLOXACIN 500 MG TAB PO ONE (12:26)
--- NOTE | 2024-10-25 16:58 | Discharge Summary ---
Date of Service October 25, 2024 Admission HPI Per Admitting Provider 79-year-old male with a history of prostate cancer, urethral stricture, and urinary retention who presented for transurethral resection of the prostate with possible dilation Admission Exam Per Admitting Provider General: Alert in no acute distress. HEENT: Inspection normal Psychologic: Normal affect. Respiratory: Nonlabored. No use of accessory muscles. Skin: [place] and Dry. No rashes or visible lesions. Principal Diagnosis Urinary retention, prostate cancer, urethral stricture Discharge Exam Constitutional no acute distress Respiratory no respiratory distress and no labored breathing Musculoskeletal Head/Neck/Chest: normocephalic Skin no rashes, warm and dry Neurologic moves all extremities and awake Psychiatric A+Ox3, euthymic affect Genitourinary Lance intact and draining clear yellow urine Discharge Data Allergies Allergy/AdvReac Type Severity Reaction Status Date / Time No Known Allergies Allergy Unverified 10/24/24 05:46 Consultations 10/24/24 07:03 Consult Hospitalist Routine Procedures Performed Operation Date: 10/24/24 07:15 Actual Procedures p TURP (Transurethral Resection of the Prostate), Ureteral Dilation(Not Applicable) - Pedro Myrick, DO Hospital Course (1) Elevated PSA: (2) Urethral stricture: (3) Urinary retention: Plan POD #1 s/p TURP (Transurethral Resection of the Prostate), Urethral Dilation, extraction of bladder stones, Fulguration of bladder ulcer with Dr. Myrick Doing well, progressing as expected Medicine consulted postoperatively for comorbidities- appreciate recommendations Pt afebrile with stable vitals Labs reviewed - WBC 9.49, Hemoglobin 10.6, Creatinine 1.[address] Lance catheter intact, patent and draining clear urine with CBI on slow CBI clamped @1000, nursing aware - will reassess later this AM Maintain Lance catheter Anticipate home with Lance catheter later today presuming urine appropriate and he continues to progress as expected Expected clinical course reviewed, all questions answered Will arrange outpatient follow-up with our service for voiding trial Patient reassessed Urine remains clear off CBI Remains afebrile and hemodynamically stable He is eager to be discharged We discussed recommendation for bowel regimen to prevent constipation Reviewed discharge instructions Patient stable for discharge home today with Lance catheter Total Time Total Time Spent Total Time Spent (In Minutes): 15 Discharge Plan Discharge Items Patient Disposition: Home - Self-Care Reason For Visit: Urinary Retention, Prostate Cancer, Urethral Stric Discharge Diagnosis: Urinary Retention, Prostate Cancer, Urethral Stricture Condition on Discharge: Good Activity: Per Instructions section Bathing Comment: OK to shower. No tub baths or soaks. Non-emergency contact: Surgeon and Urologist Call non-emergency contact if: you have any medication questions, your symptoms worsen, your pain is not controlled and you have a fever Follow-up/Referrals: Pedro Myrick DO [Physician] - 11/01/24 11:15 am [place] Mary [Primary Care Provider] - Diet: Carb Consistent or DM2 Addtl Attending Provider Instructions: Please take all medications as prescribed and keep all follow-ups as scheduled. Please call our office at [phone] with any questions, concerns or need to reschedule appointments for any reason. We are happy to assist you. An antibiotic (Doxycycline) has been sent to your pharmacy. Please take as directed. You were seen by the hospital medicine team during this admission. They have recommended vitamin B12 500mcg orally daily. This has been sent to your [facility]. Please follow-up with your primary care provider. Tips for your recovery at home: Dont be alarmed by brownish or reddish blood or clots in your urine. This is a result of the procedure. This may occur off and on for weeks to months after the procedure but should continue to improve. Drink plenty of fluids during the day (enough to keep your urine very light colored). This will help keep a healthy flow of urine. Do not lift >25 lbs until your followup Avoid constipation. Please use a stool softener (Colace) for the first two weeks after your procedure Be sure to finish the antibiotics as prescribed. If you go home with a catheter, please wash tubing where it enters your body twice daily with mild soap (Dove or Dial). Once your catheter is removed, expect some blood in your urine and some burning when you urinate. You should have an appointment to have this removed, if you do not please call our office to arrange. When to call [facility] at [phone]: Your urine contains heavy blood clots or your catheter stops draining You are constantly leaking urine Fever of 101F or higher, chills, nausea, or vomiting Your pain is not relieved with medication Pending Studies at Discharge: Yes Stand-Alone Forms: My [facility], Smoking Cessation Medications and DC Order Prescriptions: New doxycycline hyclate 100 mg tablet 100 mg PO BID 7 Days Qty: 14 0RF cyanocobalamin (vitamin B-12) 500 mcg Tablet 500 mcg PO QAM Qty: 30 0RF Continued multivitamin Tablet 1 tab PO QAM Rx Instructions: Unable to verify OTC meds at this date/time. aspirin 325 mg Tablet 325 mg PO DAILY PRN (Reason: Fever) Patient Comments: pt states that he is not currently taking glipizide 10 mg Tablet 10 mg PO TIDWMEAL Hold Instructions: Resume on 11/05/24. resume when instructed by dr schwartz acetaminophen 500 mg Tablet 500 mg PO Q6H PRN (Reason: Pain (Scale Score 1-3)) Rx Instructions: Unable to verify OTC meds at this date/time. simvastatin 40 mg Tablet 40 mg PO PM metformin 1,000 mg Tablet 1,000 mg PO BIDM Hold Instructions: Resume on 11/05/24. resume when instructed by dr schwartz Rx Instructions: CURRENTLY USING INSULIN Januvia 100 mg Tablet 100 mg PO QPM Hold Instructions: Resume on 11/05/24. resume when instructed by dr schwartz insulin aspart U-100 [Novolog FlexPen U-100 Insulin] 100 unit/mL (3 mL) insulin pen 10 unit subcut AC Qty: 15 0RF insulin glargine [Lantus Solostar U-100 Insulin] 100 unit/mL (3 mL) insulin pen 30 unit subcut HS Discharge Orders: Discharge Order (Routine); Ordered 10/25/24 Ordered By: Angélica Pan/Other Patient Handouts: [facility] Admission Data Admit Date/Time: 10/24/24 07:01 Attending Provider: Pedro Myrick Admit Provider: Pedro Myrick Primary Care Provider: [place] Mary Other Providers: Trent Casanova; Tom Bernard; Johny Clement; Lazaro Lindquist; Mariusz Purcell; Ellen Calderon; Gay Norton; Maida Murphy; Carla Cleary; Bony Salinas; Charo Castillo; Shay Fall; Tom Rashid; Adolph Caro; Robbin Ann; Maira Alvarez; Judy Clements; Judy Puentes; Sanjana Kong E; Namita Mendoza N; Elliott Pathak; Karen Carlson.; Bernardino El; Vicente Sewell; Komal San; Ashley Guerrier; Nickie Donald; Bassam Collier; Joanna Ramirez; Johny Qiu; Lazaro Hare; Marleen Orr; Dunia Matthews; Nataliya Perez; Osman Leyva; Paddy Brice; Polo Francis; Naveen Batista; Judith Silva; Junior White; Zahra Trujillo; [place] Mary Other Interventions: Discharge Summary Assessment (RN) Last Done: 10/25/24 14:18 Coding Level of Care Code 87948 IN/OBS DISCH 30 MIN/LESS Diagnoses Elevated PSA R97.20 Urethral stricture N35.919 Urethral stricture sex-location: male urethra-unspecified Urethral stricture type: unspecified stricture type Urinary retention R33.9
== END 2024-10-25 14:30 | disposition home or self-care (01) ==
LOC: 3E 05:13 → ASU 05:13